=== PATIENT | male | born 1940 | race Two or more races ===

== ENCOUNTER → 2018-09-27 | Outpatient (CLI) | payer MEDICARE, BC ==
--- NOTE | 2018-09-27 12:59 | RADIOLOGY REPORT (SQ) ---
EXAM DESCRIPTION: CT SINUSES FOR ENT COMPLETED DATE/TIME: 09/27/2018 12:45 pm REASON FOR STUDY: J32.4 CHRONIC PANSINUSITIS ( SINUS FUSION PROTOCOL) J32.4 CHRONIC PANSINUSITIS COMPARISON: None. TECHNIQUE: Noncontrast scanning through the paranasal sinuses using bone algorithm. Reconstructed MPR images reviewed. All images stored on PACS. Images acquired for image guided surgery. All CT scanners at this facility use dose modulation, iterative reconstruction, and/or weight based d osing when appropriate to reduce radiation dose to as low as reasonably achievable (ALARA). [facility]: Dose Right [facility]: CareDose [facility]: Dose Right [facility]: Teradose 4D [facility]: Power[employer] RADIATION DOSE: 46 mGy. FINDINGS: NASAL PASSAGES: Clear. No polyps or masses. OSTEOMEATAL UNITS AND NASOFRONTAL DUCTS: Nasofrontal ducts are are narrowed by mucous membrane thicke susan bilaterally, best shown on coronal images 128 through 137. Bilateral maxillary outlets are narro wed by mucous membrane thickening on coronal images 122 through 141. Bilateral Arturo cells are pres ent. MAXILLARY SINUSES: Mucous membrane thickening throughout the right and left anterior de la paz maxillary sinuses. Maxillary outlets are narrowed by mucous membrane thickening ETHMOID SINUSES: Bilateral anterior and mid ethmoid air cells are opacified with fluid. Posterior le ft ethmoid air cells are opacified with fluid SPHENOID SINUSES: Right sphenoid sinus clear, right sphenoid out with patent axial image 83. Mucus o r serous retention cyst floor/left pterygoid recess left sphenoid sinus. Left sphenoid sinus outlet patent on axial image 82. No pneumatized dorsal sella. FRONTAL SINUSES: Well-pneumatized. Mucous membrane thickening in the bilateral fronto ethmoid juncti on. MASTOID AIR CELLS: Clear. ORBITS: Globes post cataract surgery bilaterally. No intraorbital masses NASAL SEPTUM: Midline. No nasal septal spurs. TEMPOROMANDIBULAR JOINTS: Normal. TURBINATES: No pneumatized turbinates. MUCOPERIOSTEAL THICKENING: No. MUCOCELE: No. OTHER: No other significant findings. IMPRESSION: Inflammatory changes in the paranasal sinuses as above. TECHNICAL DOCUMENTATION: JOB ID: [id number] Quality ID # [id number]: Final reports with documentation of one or more dose reduction techniques (e.g., Au tomated exposure control, adjustment of the mA and/or kV according to patient size, use of iterative reconstruction technique) 2010 [employer]- All Rights Reserved Reading location - IP/workstation name: [email or web address]
== END ==
LOC: RAD 12:04
PROVIDERS: ATTEND Otolaryngology
DX: J32.4 Chronic pansinusitis (principal)
CPT/HCPCS: 70486

== ENCOUNTER 2018-12-20 11:44 | Emergency (ER) | payer MEDICARE, BC ==
--- NOTE | 2018-12-20 12:01 | ER Document Report ---
ED Medical Screen (RME) - General TRAVEL OUTSIDE OF THE [place]. IN LAST 30 DAYS: No <JUDITH HURTADO - Last Filed: 12/20/18 12:01> <BRET GARCÍA - Last Filed: 12/20/18 12:43> - General Chief Complaint: High Blood Pressure Stated Complaint: BLOOD PRESSURE ISSUES Time Seen by Provider: 12/20/18 11:56 Primary Care Provider: RADHA FRANKLIN MD [Primary Care Provider] - Follow up as needed Notes: 78 years old male with a history of hypertension hypercholesterolemia and diabetes presents today with elevated blood pressure around 196 systole this morning as well as feeling dizzy and lightheaded. Denies any chest pain palpitation or diaphoresis. Denies any focal weakness numbness tingling sensation. Examination obesity (JUDITH HURTADO) - Related Data Allergies/Adverse Reactions: No Known Allergies Allergy (Verified 12/20/18 11:51) Past Medical History - Past Medical History Cardiac Medical History: Reports: Hx Hypercholesterolemia Endocrine Medical History: Reports: Hx Diabetes Mellitus Type 2 Musculoskeltal Medical History: Reports Hx Arthritis Past Surgical History: Reports: Hx Cholecystectomy - Immunizations Hx Diphtheria, Pertussis, Tetanus Vaccination: Yes <JUDITH HURTADO - Last Filed: 12/20/18 12:01> - Vital signs Vitals: Temp Pulse Resp BP Pulse Ox 98.1 F 94 16 169/69 H 97 12/20/18 11:56 12/20/18 11:56 12/20/18 11:56 12/20/18 11:56 12/20/18 11:56 Course - Laboratory Result Diagrams: 12/20/18 12:08 12/20/18 12:08 <BRET GARCÍA - Last Filed: 12/20/18 12:43> - Vital Signs Vital signs: Temp Pulse Resp BP Pulse Ox 98.1 F 94 16 169/69 H 97 12/20/18 11:56 12/20/18 11:56 12/20/18 11:56 12/20/18 11:56 12/20/18 11:56 - Laboratory Laboratory results interpreted by me: 12/20/18 12:08 RDW 14.5 H Doctor's Discharge <JUDITH HURTADO - Last Filed: 12/20/18 12:01> <BRET GARCÍA F - Last Filed: 12/20/18 12:43> - Discharge Clinical Impression: Hypertension Qualifiers: Hypertension type: unspecified Qualified Code(s): I10 - Essential (primary) hypertension Condition: Good Disposition: HOME, SELF-CARE Instructions: Beta Blockers ([facility]), High Blood Pressure, Requiring Treatment ([facility]) Referrals: RADHA FRANKLIN MD [Primary Care Provider] - Follow up tomorrow
[2018-12-20 12:24] LABS: ABSOLUTE BASOPHILS # (AUTO) 0.1 10^3/uL (0.0-0.2); ABSOLUTE EOSINOPHILS # (AUTO) 0.1 10^3/uL (0.0-0.6); ABSOLUTE LYMPHOCYTES (AUTO) 1.6 10^3/uL (0.5-4.7); ABSOLUTE MONOCYTES (AUTO) 0.7 10^3/uL (0.1-1.4); ABSOLUTE NEUT (AUTO) 7.5 10^3/uL (1.7-8.2); BASOPHILS % (AUTO) 1.1 % (0-2); EOSINOPHILS % (AUTO) 0.5 % (0-6); HEMATOCRIT 41.3 % (37.9-51.0); LYMPHOCYTES % (AUTO) 16.3 % (13-45); MEAN CORPUSCULAR HEMOGLOBIN 29.1 pg (27.0-33.4); MEAN CORPUSCULAR VOLUME 86 fl (80-97); MONOCYTES % (AUTO) 6.8 % (3-13); PLATELET COUNT 192 10^3/uL (150-450); RED BLOOD COUNT 4.81 10^6/uL (4.35-5.55); RED CELL DISTRIBUTION WIDTH 14.5 % (11.5-14.0); SEGMENTED NEUTROPHILS % (AUTO) 75.3 % (42-78); TOTAL CELLS COUNTED % (AUTO) 100 %
--- NOTE | 2018-12-20 12:39 | RADIOLOGY REPORT (SQ) ---
EXAM DESCRIPTION: CT HEAD WITHOUT COMPLETED DATE/TIME: 12/20/2018 12:28 pm REASON FOR STUDY: Headache and dizziness COMPARISON: CT sinuses 09/27/2018 TECHNIQUE: Axial images acquired through the brain without intravenous contrast. Images reviewed wi th bone, brain and subdural windows. Additional sagittal and coronal reconstructions were generated. Images stored on PACS. All CT scanners at this facility use dose modulation, iterative reconstruction, and/or weight based d osing when appropriate to reduce radiation dose to as low as reasonably achievable (ALARA). [facility]: Dose Right [facility]: CareDose [facility]: Dose Right [facility]: Teradose 4D [facility]: [employer] RADIATION DOSE: CT Rad equipment meets quality standard of care and radiation dose reduction techniq ues were employed. CTDIvol: 53.2 mGy. DLP: 1044 mGy-cm. mGy. LIMITATIONS: None. FINDINGS: VENTRICLES: Normal size and contour. CEREBRUM: No CT evidence of acute large territory ischemic change, acute intracranial hemorrhage, mas s effect, or midline shift. Spotty low attenuation in the bifrontal and biparietal hemispheric white matter from chronic small vessel disease. CEREBELLUM: No masses. No hemorrhage. No alteration of density. No evidence for acute infarction. EXTRAAXIAL SPACES: No fluid collections. No masses. ORBITS AND GLOBE: No intra- or extraconal masses. Post cataract surgery bilaterally CALVARIUM: No fracture. PARANASAL SINUSES: Chronically opacified posterior left ethmoid air cell with dried secretions axial image 14 and 15. Mucous membrane thickening in the left sphenoid sinus. SOFT TISSUES: No mass or hematoma. OTHER: No other significant finding. IMPRESSION: Left sphenoid and posterior ethmoid air cell inflammatory changes No acute intracranial findings. Age-appropriate minimal white matter disease EVIDENCE OF ACUTE STROKE: NO. COMMENT: Quality ID # 436: Final reports with documentation of one or more dose reduction techniques (e.g., Automated exposure control, adjustment of the mA and/or kV according to patient size, use of iterative reconstruction technique) TECHNICAL DOCUMENTATION: JOB ID: [id number] [employer]- All Rights Reserved Reading location - IP/workstation name: [email or web address]
[2018-12-20 12:49] VITALS: BP 157/73
[2018-12-20 12:50] LABS: ALANINE AMINOTRANSFERASE 18 U/L (21-72); ALBUMIN 4.6 g/dL (3.5-5.0); ALKALINE PHOSPHATASE 84 U/L (38-126); ANION GAP 11 (5-19); ASPARTATE AMINO TRANSFERASE 17 U/L (17-59); BILIRUBIN,DIRECT 0.2 mg/dL (0.0-0.4); BILIRUBIN,TOTAL 0.6 mg/dL (0.2-1.3); BLOOD UREA NITROGEN 26 mg/dL (7-20); CARBON DIOXIDE 28 mmol/L (22-30); CHLORIDE 101 mmol/L (98-107); GLUCOSE 205 mg/dL (75-110); SODIUM 139.7 mmol/L (137-145); TOTAL PROTEIN 7.1 g/dL (6.3-8.2)
--- NOTE | 2018-12-20 17:51 | EKG REPORT ---
SEVERITY:- ABNORMAL ECG - SINUS RHYTHM LAD, CONSIDER LEFT ANTERIOR FASCICULAR BLOCK : Confirmed by: Madison Blood MD 20-Dec-2018 17:51:30
== END 2018-12-20 12:55 | disposition home or self-care (01) ==
LOC: ER 11:44
DX: I10 Essential (primary) hypertension (principal); E11.9 Type 2 diabetes mellitus without complications; R42 Dizziness and giddiness
CPT/HCPCS: 36415; 70450; 80053; 85025; 93005; 93010; 99284

== ENCOUNTER → 2018-12-22 | Outpatient (CLI) | payer MEDICARE, BC | LOC: OD 09:34 | PROVIDERS: ATTEND Otolaryngology | DX: J30.9 Allergic rhinitis, unspecified (principal) | CPT/HCPCS: 36415; 82785; 86003 ==

== ENCOUNTER 2018-12-27 08:58 | Emergency (ER) | payer MEDICARE, BC ==
--- NOTE | 2018-12-27 09:50 | ER Document Report ---
ED Medical Screen (RME) - General Chief Complaint: Abdominal Pain Stated Complaint: ABDOMINAL PAIN Time Seen by Provider: 12/27/18 09:46 Primary Care Provider: RADHA FRANKLIN MD [Primary Care Provider] - Follow up as needed Mode of Arrival: Ambulatory Information source: Patient Notes: 78-year-old male presents with complaint of abdominal pain and constipation that started 3 days prior to arrival. Patient has surgical history of cholecystectomy. I have greeted and performed a rapid initial assessment of this patient. A comprehensive ED assessment and evaluation of the patient, analysis of test results and completion of medical decision making process we will be contacted by additional ED providers. PHYSICAL EXAMINATION: Vital signs reviewed GENERAL: Well-appearing, well-nourished and in no acute distress. LUNGS: No respiratory distress Musculoskeletal: Normal range of motion NEUROLOGICAL: Normal speech, normal gait. PSYCH: Normal mood, normal affect. SKIN: Warm, Dry, normal turgor, no rashes or lesions noted. TRAVEL OUTSIDE OF THE [place] IN LAST 30 DAYS: No - HPI Onset: Other Onset/Duration: Gradual Quality of pain: Cramping Severity: Mild Associated Symptoms: denies: Chest pain, Diarrhea, Fever, Nausea Exacerbated by: Denies Relieved by: Denies Similar symptoms previously: Yes Recently seen / treated by doctor: No - Related Data Smoking: Non-smoker Frequency of alcohol use: None Drug Abuse: None Allergies/Adverse Reactions: No Known Allergies Allergy (Verified 12/20/18 11:51) Past Medical History - Social History Frequency of alcohol use: None Drug Abuse: None - Past Medical History Cardiac Medical History: Reports: Hx Hypercholesterolemia, Hx Hypertension Endocrine Medical History: Reports: Hx Diabetes Mellitus Type 2 Renal/ Medical History: Denies: Hx Peritoneal Dialysis Musculoskeltal Medical History: Reports Hx Arthritis Past Surgical History: Reports: Hx Abdominal Surgery - right inginual hernia r epair, Hx Cholecystectomy - Immunizations Hx Diphtheria, Pertussis, Tetanus Vaccination: Yes Physical Exam - Vital signs Vitals: Temp Pulse Resp BP Pulse Ox 98.1 F 78 18 156/67 H 97 12/27/18 09:13 12/27/18 09:13 12/27/18 09:13 12/27/18 09:13 12/27/18 09:13 Course - Vital Signs Vital signs: Temp Pulse Resp BP Pulse Ox 98.1 F 78 18 156/67 H 97 12/27/18 09:13 12/27/18 09:13 12/27/18 09:13 12/27/18 09:13 12/27/18 09:13 Doctor's Discharge - Discharge Referrals: RADHA FRANKLIN MD [Primary Care Provider] - Follow up as needed
[2018-12-27 10:26] LABS: ABSOLUTE BASOPHILS # (AUTO) 0.1 10^3/uL (0.0-0.2); ABSOLUTE LYMPHOCYTES (AUTO) 1.6 10^3/uL (0.5-4.7); ABSOLUTE NEUT (AUTO) 7.9 10^3/uL (1.7-8.2); BASOPHILS % (AUTO) 0.9 % (0-2); EOSINOPHILS % (AUTO) 0.5 % (0-6); HEMATOCRIT 39.7 % (37.9-51.0); HEMOGLOBIN 13.5 g/dL (13.5-17.0); LYMPHOCYTES % (AUTO) 15.2 % (13-45); MEAN CORPUSCULAR HEMOGLOBIN 29.3 pg (27.0-33.4); MEAN CORPUSCULAR HGB CONC 34.1 g/dL (32.0-36.0); MEAN CORPUSCULAR VOLUME 86 fl (80-97); MONOCYTES % (AUTO) 9.3 % (3-13); PLATELET COUNT 214 10^3/uL (150-450); RED BLOOD COUNT 4.62 10^6/uL (4.35-5.55); RED CELL DISTRIBUTION WIDTH 14.4 % (11.5-14.0); SEGMENTED NEUTROPHILS % (AUTO) 74.1 % (42-78); TOTAL CELLS COUNTED % (AUTO) 100 %; WHITE BLOOD COUNT 10.7 10^3/uL (4.0-10.5)
[2018-12-27 10:42] LABS: ALANINE AMINOTRANSFERASE 28 U/L (21-72); ALBUMIN 4.7 g/dL (3.5-5.0); ALKALINE PHOSPHATASE 81 U/L (38-126); ANION GAP 12 (5-19); ASPARTATE AMINO TRANSFERASE 19 U/L (17-59); BILIRUBIN,DIRECT 0.1 mg/dL (0.0-0.4); BILIRUBIN,TOTAL 0.5 mg/dL (0.2-1.3); BLOOD UREA NITROGEN 24 mg/dL (7-20); CALCIUM 10.1 mg/dL (8.4-10.2); CARBON DIOXIDE 26 mmol/L (22-30); CHLORIDE 99 mmol/L (98-107); GLUCOSE 190 mg/dL (75-110); POTASSIUM 5.4 mmol/L (3.6-5.0); SODIUM 137.3 mmol/L (137-145)
[2018-12-27 10:51] LABS: LIPASE 2749.8 U/L (23-300)
--- NOTE | 2018-12-27 11:01 | RADIOLOGY REPORT (SQ) ---
EXAM DESCRIPTION: ACUTE ABDOMEN SERIES COMPLETED DATE/TIME: 12/27/2018 10:47 am REASON FOR STUDY: pain no BM COMPARISON: 12/03/2011. NUMBER OF VIEWS: Three views. TECHNIQUE: Frontal chest, supine abdomen and upright/decubitus abdomen radiographic images acquired. LIMITATIONS: None. FINDINGS: CHEST: Lungs clear of infiltrates. FREE AIR: None. No abnormal gas collections. BOWEL GAS PATTERN: Nonobstructive pattern. No dilated loops or air fluid levels. Prominent stool thr oughout the colon. CALCIFICATIONS: No suspicious calcifications. HARDWARE: Surgical clips. SOFT TISSUES: No gross mass or suggestion of organomegaly. BONES: No acute fracture. No worrisome bone lesions. OTHER: No other significant finding. IMPRESSION: PROMINENT STOOL THROUGHOUT THE COLON CONSISTENT WITH CONSTIPATION. NO RADIOGRAPHIC EVID ENCE FOR ACUTE ABDOMINAL DISEASE. TECHNICAL DOCUMENTATION: JOB ID: [id number] [employer]- All Rights Reserved Reading location - IP/workstation name: [email or web address]
--- NOTE | 2018-12-27 11:31 | ER Document Report ---
ED General - General Chief Complaint: Abdominal Pain Stated Complaint: ABDOMINAL PAIN Time Seen by Provider: 12/27/18 09:46 Primary Care Provider: RADHA FRANKLIN MD [ACTIVE STAFF] - Follow up as needed Mode of Arrival: Ambulatory Notes: 78-year-old male presents with 3-day history of constipation and some abdominal fullness and discomfort. The patient stated he was having 3 days of abdominal distention and discomfort. More so on the left lower quadrant. The patient was doing well here workup was started by triage. He stated he went to the bathroom and had a large bowel movement and now is completely asymptomatic. He denies any current nausea vomiting denies fever chills cough or sore throat denies chest pain or shortness of breath. Stated his symptoms are completely resolved before he had some mild to moderate fullness in his abdomen more so the left lower quadrant. TRAVEL OUTSIDE OF THE [place] IN LAST 30 DAYS: No - Related Data Allergies/Adverse Reactions: No Known Allergies Allergy (Verified 12/20/18 11:51) Past Medical History - General Information source: Patient - Social History Smoking Status: Never Smoker Frequency of alcohol use: None Drug Abuse: None Family History: Other Patient has suicidal ideation: No Patient has homicidal ideation: No - Past Medical History Cardiac Medical History: Reports: Hx Hypercholesterolemia, Hx Hypertension Endocrine Medical History: Reports: Hx Diabetes Mellitus Type 2 Renal/ Medical History: Denies: Hx Peritoneal Dialysis Musculoskeletal Medical History: Reports Hx Arthritis Past Surgical History: Reports: Hx Abdominal Surgery - right inginual hernia repair, Hx Cholecystectomy - Immunizations Hx Diphtheria, Pertussis, Tetanus Vaccination: Yes Review of Systems - Review of Systems Gastrointestinal: Abdomen distended, Abdominal pain, Nausea, Constipation -: Yes All other systems reviewed and negative Physical Exam - Vital signs Vitals: Temp Pulse Resp BP Pulse Ox 98.1 F 78 18 156/67 H 97 12/27/18 09:13 12/27/18 09:13 12/27/18 09:13 12/27/18 09:13 12/27/18 09:13 - Notes Notes: GENERAL_APPEARANCE: well_nourished, alert, cooperative, no_acute_distress, no_obvious_discomfort. VITALS: reviewed, see vital signs table. HEAD: no_swelling\tenderness on the head. EYES: PERRL, EOMI, conjunctiva_clear. NOSE: no_nasal_discharge. MOUTH: (-)decreased moisture. THROAT: no_tonsilar_inflammation, no_airway_obstruction. no_lymphadenopathy NECK: supple, no_neck_tenderness, (-)thyromegaly. BACK: no_back_tenderness. ABDOMEN: soft, no_abd_tenderness, (-)guarding, (-)rebound, no_organomegaly, no_abd_masses. EXTREMITIES: good pulses in all_extremities, no_swelling\tenderness in the extremities, no_edema. SKIN: warm, dry, good_color, no_rash. MENTAL_STATUS: speech_clear, oriented_X_3, normal_affect, respon ds_appropriately to questions. Course - Re-evaluation Re-evalutation: 12/27/18 11:44 Acute Abdomen Series 12/27/18 09:49 IMPRESSION: PROMINENT STOOL THROUGHOUT THE COLON CONSISTENT WITH CONSTIPATION. NO RADIOGRAPHIC EVIDENCE FOR ACUTE ABDOMINAL DISEASE. The patient had a large bowel movement and feels much better and is wanting to go home. I spoke with him about the findings. His lipase is elevated but there is no liver function elevations. He denies any alcohol use. I spoke with him about the possibility of pancreatitis but the patient has no pain now on exam and his initial complaint is discomfort was left lower quadrant. This does not seem to clinically correlate. The patient stated he has an appointment with gastroenterology coming up but he does not know who that would be. Patient is wanting to go home I explained to him that he will need to follow this up outpatient. I did explain him worse case scenario he could have some type of pancreatic lesion. However there are many other causes of pancreatitis. Since he is asymptomatic at this time and he is insistent on going home I will not work this up further. I made clear the him that is absolutely paramount he gets this followed up as soon as possible. He says he has an appointment with gastroenterology coming up and will. 12/27/18 11:47 Was just mildly elevated encouraged him to drink plenty of fluids. This may likely be a result of hemolysis. - Vital Signs Vital signs: Temp Pulse Resp BP Pulse Ox 98.1 F 78 18 156/67 H 97 12/27/18 09:13 12/27/18 09:13 12/27/18 09:13 12/27/18 09:13 12/27/18 09:13 - Laboratory Result Diagrams: 12/27/18 09:50 12/27/18 09:50 Laboratory results interpreted by me: 12/27/18 12/27/18 09:50 09:50 WBC 10.7 H RDW 14.4 H Potassium 5.4 H BUN 24 H Glucose 190 H Lipase 2749.8 H - Diagnostic Test Radiology reviewed: Reports reviewed Discharge - Discharge Clinical Impression: Pancreatitis Qualifiers: Chronicity: acute Pancreatitis type: unspecified pancreatitis type Constipation Qualifiers: Constipation type: unspecified constipation type Qualified Code(s): K59.00 - Constipation, unspecified Condition: Good Disposition: HOME, SELF-CARE Instructions: Pancreatitis ([facility]) Additional Instructions: Your lipase which is a pancreatic enzyme is elevated. None of your liver enzymes are elevated. We have spoke about pancreatitis it is very important that he have that number rechecked. When you see gastroenterology coming up you need to notify them of this. They may need to do further testing possibly MRI. If you start develop pain or vomiting return to the ER soon as possible. Referrals: RADHA FRANKLIN MD [ACTIVE STAFF] - Follow up as needed
[2018-12-27 11:59] VITALS: BP 158/66
== END 2018-12-27 11:51 | disposition home or self-care (01) ==
LOC: ER 08:58
DX: K85.90 Acute pancreatitis without necrosis or infection, unspecified (principal); K59.00 Constipation, unspecified; R10.9 Unspecified abdominal pain; E78.00 Pure hypercholesterolemia, unspecified; I10 Essential (primary) hypertension; E11.9 Type 2 diabetes mellitus without complications; Z90.49 Acquired absence of other specified parts of digestive tract
CPT/HCPCS: 36415; 74022; 80053; 83690; 85025; 99284

== ENCOUNTER → 2019-01-17 | Outpatient (CLI) | payer MEDICARE, BC ==
--- NOTE | 2019-01-17 11:59 | RADIOLOGY REPORT (SQ) ---
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 Images stored on PACS. LIMITATIONS: None. FINDINGS: RIGHT CAROTID CCA Velocities: Within normal limits. Right common carotid peak systolic velocity 1.1 m/sec ICA Velocities Peak systolic 1.1 m/s. End diastolic 0.19 m/s. Proximal ICA/CCA peak systolic ratio 0.9. Calcific eccentric plaque is present at the right carotid bifurcation causing about 50% diameter narr owing on grayscale and color flow images. Velocities distal to the shadowing plaque suggest less sharita n 50% diameter narrowing of the proximal right ICA. LEFT CAROTID CCA Velocities: Within normal limits. Left common carotid artery peak systolic velocity 1.4 m/sec ICA Velocities Peak systolic 0.53 m/s. End diastolic 0.12 m/s. Proximal ICA/CCA peak systolic ratio 1.0. Minimal calcific plaque is present at the left carotid bifurcation without flow significant stenosis of the left proximal ICA VERTEBRAL ARTERIES: Antegrade flow. Normal waveforms. SUBCLAVIAN ARTERIES: Not evaluated. OTHER: No other significant finding. IMPRESSION: NO HEMODYNAMICALLY SIGNIFICANT STENOSIS OF THE PROXIMAL RIGHT OR LEFT INTERNAL CAROTID A RTERY AT THE CAROTID BIFURCATIONS. COMMENT: Quality ID #[id number]: Velocity criteria are extrapolated from the diameter data as defined by t he Society of Radiologists in Ultrasound Consensus Conference. Radiology 2003: 229; 340-346. TECHNICAL DOCUMENTATION: JOB ID: [id number] [employer]- All Rights Reserved Reading location - IP/workstation name: [email or web address]
== END ==
LOC: SP 10:43
PROVIDERS: ATTEND Surgery
DX: Z86.73 Personal history of transient ischemic attack (TIA), and cerebral infarction without residual deficits (principal)
CPT/HCPCS: 93880

== ENCOUNTER 2019-11-20 14:43 | Emergency (ER) | payer MEDICARE, BC ==
--- NOTE | 2019-11-20 15:33 | ER Document Report ---
ED Medical Screen (RME) - General Chief Complaint: nosebleed Stated Complaint: NOSEBLEED Time Seen by Provider: 11/20/19 15:19 Primary Care Provider: NAHED COLLAZO MD [Primary Care Provider] - Follow up as needed Mode of Arrival: Ambulatory Information source: Patient Notes: 79-year-old male patient presenting to the emergency department with complaints of recurrent nosebleeds. He states that he believes the nosebleeds are originating from his upper sinuses, states that every time he has a nosebleed he feels a really terrible sensation up in the middle of his forehead between his eyes. He states he is seen by ENT, states they have done every test other than a CT of his sinuses and have tried every medication without relief. No active bleeding noted at this time. I have greeted and performed a rapid initial assessment of this patient. A comprehensive ED assessment and evaluation of the patient, analysis of test results and completion of the medical decision making process will be conducted by additional ED providers. I have specifically instructed the patient or family members with the patient to immediately return to any nursing staff shoul d anything change in the patient's condition or with their chief complaint. TRAVEL OUTSIDE OF THE [place] IN LAST 30 DAYS: No - Related Data Allergies/Adverse Reactions: No Known Allergies Allergy (Verified 12/20/18 11:51) Past Medical History - Social History Frequency of alcohol use: None - Past Medical History Cardiac Medical History: Reports: Hx Hypercholesterolemia, Hx Hypertension Endocrine Medical History: Reports: Hx Diabetes Mellitus Type 2 Renal/ Medical History: Denies: Hx Peritoneal Dialysis Musculoskeltal Medical History: Reports Hx Arthritis Past Surgical History: Reports: Hx Abdominal Surgery - right inginual hernia repair, Hx Cholecystectomy - Immunizations Hx Diphtheria, Pertussis, Tetanus Vaccination: Yes Physical Exam - Vital signs Vitals: Pulse Resp BP Pulse Ox 102 H 18 167/62 H 93 11/20/19 14:59 11/20/19 14:59 11/20/19 14:59 11/20/19 14:59 Course - Vital Signs Vital signs: Temp Pulse Resp BP Pulse Ox 97.9 F 100 18 167/62 H 93 11/20/19 15:26 11/20/19 15:26 11/20/19 14:59 11/20/19 14:59 11/20/19 14:59 Doctor's Discharge - Discharge Referrals: NAHED COLLAZO MD [Primary Care Provider] - Follow up as needed
--- NOTE | 2019-11-20 16:58 | RADIOLOGY REPORT (SQ) ---
EXAM DESCRIPTION: CT FACIAL AREA WITHOUT COMPLETED DATE/TIME: 11/20/2019 4:28 pm REASON FOR STUDY: sinus pain, bleeding COMPARISON: None. TECHNIQUE: Noncontrasted images through the facial bones and orbits windowed for bone and soft tissu e. Additional coronal and sagittal reconstructed images reviewed. All images stored on PACS. All CT scanners at this facility use dose modulation, iterative reconstruction, and/or weight based d osing when appropriate to reduce radiation dose to as low as reasonably achievable (ALARA). [facility]: Dose Right [facility]: CareDose [facility]: Dose Right [facility]: Teradose 4D [facility]: [employer] RADIATION DOSE: CT Rad equipment meets quality standard of care and radiation dose reduction techniq ues were employed. CTDIvol: 30.4 mGy. DLP: 593 mGy-cm. mGy. LIMITATIONS: None. FINDINGS: FACIAL BONES: No fracture or bone lesion. ORBITS: Intact. No fracture. Symmetric intact globes and retroorbital soft tissues. PARANASAL SINUSES: Mucous membrane thickening and fluid throughout all the paranasal sinuses. SOFT TISSUES: No mass or edema. INFERIOR BRAIN: Limited view. No acute findings. OTHER: No other significant finding. IMPRESSION: DIFFUSE PANSINUSITIS. NO OTHER SIGNIFICANT FINDINGS. TECHNICAL DOCUMENTATION: JOB ID: [id number] Quality ID # 436: Final reports with documentation of one or more dose reduction techniques (e.g., Au tomated exposure control, adjustment of the mA and/or kV according to patient size, use of iterative reconstruction technique) 2010 [employer]- All Rights Reserved Reading location - IP/workstation name: [email or web address]
[2019-11-20] MEDS ORDERED: OXYMETAZOLINE HCL 0.05% NASAL SPRAY 15 ML BOTTLE NASL ONE (18:44)
--- NOTE | 2019-11-20 19:05 | ER Document Report ---
ED General - General Chief Complaint: nosebleed Stated Complaint: NOSEBLEED Time Seen by Provider: 11/20/19 15:19 Primary Care Provider: NAHED COLLAZO MD [ACTIVE STAFF] - Follow up as needed Mode of Arrival: Ambulatory TRAVEL OUTSIDE OF THE [place] IN LAST 30 DAYS: No - Related Data Allergies/Adverse Reactions: No Known Allergies Allergy (Verified 12/20/18 11:51) Past Medical History - General Information source: Patient - Social History Smoking Status: Former Smoker Frequency of alcohol use: None Family History: Other Patient has suicidal ideation: No Patient has homicidal ideation: No - Past Medical History Cardiac Medical History: Reports: Hx Hypercholesterolemia, Hx Hypertension Endocrine Medical History: Reports: Hx Diabetes Mellitus Type 2 Renal/ Medical History: Denies: Hx Peritoneal Dialysis Musculoskeletal Medical History: Reports Hx Arthritis Past Surgical History: Reports: Hx Abdominal Surgery - right inginual hernia repair, Hx Cholecystectomy - Immunizations Hx Diphtheria, Pertussis, Tetanus Vaccination: Yes Physical Exam - Vital signs Vitals: Pulse Resp BP Pulse Ox 102 H 18 167/62 H 93 11/20/19 14:59 11/20/19 14:59 11/20/19 14:59 11/20/19 14:59 - Notes Notes: Patient presents emerged department complaining of epistaxis this morning after blowing his nose. Had minimal amount of bleeding from his left nares but not his right. He denies any previous history of nosebleeds. Denies any recent URI symptoms nasal congestion sore throat chest pain shortness of breath or dizziness with this and no headaches. Patient gives a history of frontal pain above his nose going on for several years. Is been seen by ENT in the past working diagnosis. Past medical history sniffing for diabetes and hypertension. Says sugar this morning was about 130 Social history does not smoke or drink at all. Medications denies being on a blood thinner Review of systems pertinent positives and negatives in HPI otherwise all the systems were reviewed and acutely negative PHYSICIAN EXAM -vital signs are noted triage note and note from triage reviewed GENERAL: Well-appearing, well-nourished and in ___no acute distress___ HEAD: Atraumatic, normocephalic. EYES: Pupils equal round and reactive to light, extraocular movements intact, sclera anicteric, conjunctiva are normal. ENT: nares patent, oropharynx clear without exudates. Moist mucous membranes. Afrin nose spray was applied to both nares. On repeat exam is got dry mucosa and some nasal congestion no active bleeding or septal hematoma patient is nontender TMs are clear is nontender the face is NECK: supple without lymphadenopathy LUNGS: Breath sounds clear to auscultation bilaterally and equal. No wheezes rales or rhonchi. HEART: Regular rate and rhythm without murmurs ABDOMEN: Soft, nontender, normoactive bowel sounds. EXTREMITIES: No deformity, no edema. NEUROLOGICAL: No focal neurological deficits. Moves all extremities spontaneously and on command. PSYCH: Normal mood, normal affect. SKIN: Warm, Dry, normal turgor, no rashes or lesions noted. BACK-nontender in the midline Course - Re-evaluation Re-evalutation: 11/20/19 21:38 Medical decision making patient presents with a brief episode of epistaxis after blowing his nose. Some nasal congestion of the sinusitis. He says is been on antibiotics for the past 2 days has family doctor started him on. This time there is no active bleeding it was only very brief episode. Feel that laboratory studies are needed at this time. Plan at this point will discharge patient home with recommended use Neosporin or Vaseline to both sides of his nose continue antibiotics follow-up with family doctor in 3 to 5 days if not improved otherwise follow-up with ENT in 2 weeks At this time there is no indication for admission. I have discussed the findings with patient/family with return precautions and follow-up recommendations. Verbal discharge instructions given at the bedside and opport unity for questions given. Medication warnings were given if indicated. Patient is in agreement with this plan and has verbalized understanding of return precautions and the need for primary care follow-up as directed.. - Vital Signs Vital signs: Temp Pulse Resp BP Pulse Ox 98.0 F 88 20 136/60 H 93 11/20/19 19:50 11/20/19 19:50 11/20/19 19:50 11/20/19 19:50 11/20/19 19:50 - Diagnostic Test Radiology reviewed: Reports reviewed Discharge - Discharge Clinical Impression: Epistaxis Sinusitis Qualifiers: Sinusitis location: other Chronicity: acute Disposition: HOME, SELF-CARE Additional Instructions: Nosebleed Instructions There is a significant chance of re-bleeding following a nosebleed. Proper care makes this less likely. Do not touch the nose for 24 hours. Do not blow the nose forcefully for one week. After 24 hours, gently apply Vaseline ointment to both nostrils with the tip of a finger, three times a day, for one week. It's normal to have a bloody mucous discharge for a few days. If active bleeding recurs, blow all the blood from the nose, then sit quietly and pinch the nose as firmly as possible for 10 minutes. If this does not stop the bleeding, return for further care. If packing was left in the nose and it starts to come out of the nostril, either tuck it back in or cut it off. Don't pull it out. Return for recheck and removal of the packing when instructed. Persons with frequent nosebleeds should avoid aspirin (unless prescribed for another reason). Humidity in the bedroom, and petroleum jelly applied to the nostrils at night may help. Sinusitis You have sinusitis, an infection of the sinus cavities of the face. The sinuses are air-filled chambers which open into the inside of the nose. Bacteria and pus fill a sinus, causing pain, drainage, and fever. Sinusitis is treated with antibiotics. Often, expectorants (to thin the sinus mucous) or decongestants (to reduce swelling) are prescribed as well. Healing requires seven to 10 days. Avoid chemical fumes, pollens, dusts, and smoke (especially cigarette smoke). Keep the air humidified in your bedroom and work area and take plenty of liquids by mouth. This condition can be serious if the infection spreads. If your symptoms worsen, or if you develop severe headache, high fever, stiff neck, or a rash, you must call the doctor or return for re-evaluation. Continue current antibiotics Apply an antibiotic ointment (like Neosporin or bacitracin) Or even Vaseline in the both____ side(s) of your nose 2 times a day for the next 5 days. If your nose starts to bleed again pinch your nose and hold it for closed for full 2 minutes and this will usually stop the bleeding. Avoid hot liquids. Sneeze with your mouth open Return to the ED in 3 to 5 days if not better Follow-up with your ENT doctor in 2 weeks Referrals: NAHED COLLAZO MD [ACTIVE STAFF] - Follow up as needed
[2019-11-20 20:28] VITALS: BP 136/60
== END 2019-11-20 19:50 | disposition home or self-care (01) ==
LOC: ER 14:43
DX: R04.0 Epistaxis (principal); Z87.891 Personal history of nicotine dependence; I10 Essential (primary) hypertension; E11.9 Type 2 diabetes mellitus without complications; R09.81 Nasal congestion
CPT/HCPCS: 99283; 70486; A9270; J3490

== ENCOUNTER 2020-01-11 13:40 | Emergency (ER) | payer MEDICARE, BC ==
--- NOTE | 2020-01-11 14:05 | ER Document Report ---
ED Medical Screen (RME) - General Chief Complaint: Urinary Frequency Stated Complaint: FREQUENT URINATION Time Seen by Provider: 01/11/20 14:01 Primary Care Provider: DALIA MOSELEY PA-C [Primary Care Provider] - Follow up as needed Mode of Arrival: Ambulatory Information source: Patient Notes: 79-year-old male presented to ED for urinary frequency. He states he is afraid to get dehydrated so he continues to drink water frequently and then he urinates frequently he is a type II diabetic. He states his sugar last night was 98 it is been running good. He states he is on glyburide for his diabetes. Is alert oriented respirations regular nonlabored speaking in full sentences. We will get blood and urine in the pit area and have him seen by another provider. I have greeted and performed a rapid initial assessment of this patient. A comprehensive ED assessment and evaluation of the patient, analysis of test results and completion of medical decision making process will be conducted by an additional ED providers. TRAVEL OUTSIDE OF THE [place] IN LAST 30 DAYS: No - Related Data Allergies/Adverse Reactions: No Known Allergies Allergy (Verified 01/11/20 14:00) Past Medical History - Past Medical History Cardiac Medical History: Reports: Hx Hypercholesterolemia, Hx Hypertension Endocrine Medical History: Reports: Hx Diabetes Mellitus Type 2 Renal/ Medical History: Denies: Hx Peritoneal Dialysis Musculoskeltal Medical History: Reports Hx Arthritis Past Surgical History: Reports: Hx Abdominal Surgery - right inginual hernia repair, Hx Cholecystectomy - Immunizations Hx Diphtheria, Pertussis, Tetanus Vaccination: Yes Physical Exam - Vital signs Vitals: Temp Pulse Resp BP Pulse Ox 98.1 F 105 H 18 185/68 H 96 01/11/20 13:58 01/11/20 13:58 01/11/20 13:58 01/11/20 13:58 01/11/20 13:58 Course - Vital Signs Vital signs: Temp Pulse Resp BP Pulse Ox 98.1 F 105 H 18 185/68 H 96 01/11/20 13:58 01/11/20 13:58 01/11/20 13:58 01/11/20 13:58 01/11/20 13:58 Doctor's Discharge - Discharge Referrals: DALIA MOSELEY PA-C [Primary Care Provider] - Follow up as needed
[2020-01-11 14:25] LABS: ABSOLUTE BASOPHILS # (AUTO) 0.1 10^3/uL (0.0-0.2); ABSOLUTE EOSINOPHILS # (AUTO) 0.1 10^3/uL (0.0-0.6); ABSOLUTE LYMPHOCYTES (AUTO) 1.8 10^3/uL (0.5-4.7); ABSOLUTE MONOCYTES (AUTO) 0.7 10^3/uL (0.1-1.4); ABSOLUTE NEUT (AUTO) 5.5 10^3/uL (1.7-8.2); BASOPHILS % (AUTO) 1.1 % (0-2); EOSINOPHILS % (AUTO) 0.9 % (0-6); HEMATOCRIT 37.3 % (37.9-51.0); HEMOGLOBIN 12.8 g/dL (13.5-17.0); MEAN CORPUSCULAR HEMOGLOBIN 29.4 pg (27.0-33.4); MEAN CORPUSCULAR HGB CONC 34.2 g/dL (32.0-36.0); MEAN CORPUSCULAR VOLUME 86 fl (80-97); MONOCYTES % (AUTO) 8.3 % (3-13); PLATELET COUNT 199 10^3/uL (150-450); RED BLOOD COUNT 4.34 10^6/uL (4.35-5.55); RED CELL DISTRIBUTION WIDTH 15.1 % (11.5-14.0); SEGMENTED NEUTROPHILS % (AUTO) 67.7 % (42-78); TOTAL CELLS COUNTED % (AUTO) 100 %; WHITE BLOOD COUNT 8.2 10^3/uL (4.0-10.5)
[2020-01-11 14:28] LABS: APPEARANCE,URINE CLEAR; BILIRUBIN,URINE NEGATIVE (NEGATIVE); COLOR,URINE COLORLESS; GLUCOSE, URINE >=500 mg/dL (NEGATIVE); KETONES,URINE NEGATIVE (NEGATIVE); PROTEIN,URINE NEGATIVE (NEGATIVE); URINE SPECIFIC GRAVITY 1.005; UROBILINOGEN,URINE NEGATIVE mg/dL (<2.0)
[2020-01-11 14:44] LABS: ALBUMIN 4.4 g/dL (3.5-5.0); ALKALINE PHOSPHATASE 99 U/L (38-126); ANION GAP 10 (5-19); ASPARTATE AMINO TRANSFERASE 21 U/L (17-59); BILIRUBIN,TOTAL 0.5 mg/dL (0.2-1.3); BLOOD UREA NITROGEN 15 mg/dL (7-20); CALCIUM 9.6 mg/dL (8.4-10.2); CARBON DIOXIDE 28 mmol/L (22-30); CHLORIDE 100 mmol/L (98-107); GLUCOSE 314 mg/dL (75-110); POTASSIUM 4.5 mmol/L (3.6-5.0); TOTAL PROTEIN 7.2 g/dL (6.3-8.2)
--- NOTE | 2020-01-11 15:59 | ER Document Report ---
ED General - General Chief Complaint: Urinary Frequency Stated Complaint: FREQUENT URINATION Time Seen by Provider: 01/11/20 14:01 Primary Care Provider: DALIA MOSELEY PA-C [Primary Care Provider] - Follow up as needed Mode of Arrival: Ambulatory TRAVEL OUTSIDE OF THE [place] IN LAST 30 DAYS: No - HPI Notes: 79-year-old male presents emergency room for evaluation for increased urination and thirst in the last couple of days. Patient is a type II diabetic, states his last A1c was in the 7's. Takes metformin and glipizide for his diabetes. Reports he has been eating more all of which he thinks is salty so that is why he is drinking more. Patient states he checked his blood sugar this morning it was 98. Denies fevers, chills, chest pain,palpitations, shortness of breath, dyspnea, nausea, vomiting, diarrhea, abdominal pain, hematuria,blurred vision, double vision, loss of vision, speech changes, LH, dizziness, syncope, headaches, wheezing, ST, URI, neck pain, weakness, bowel or bladder dysfunction, saddle anesthesia, numbness or tingling in bilateral upper or lower extremities equally, muscle paralysis, weakness in bilateral upper or lower extremities equally or rash. - Related Data Allergies/Adverse Reactions: No Known Allergies Allergy (Verified 01/11/20 14:00) Home Medications: glyburide Past Medical History - General Information source: Patient - Social History Smoking Status: Never Smoker Chew tobacco use (# tins/day): No Frequency of alcohol use: None Drug Abuse: None Family History: Other Patient has suicidal ideation: No Patient has homicidal ideation: No - Past Medical History Cardiac Medical History: Reports: Hx Hypercholesterolemia, Hx Hypertension Endocrine Medical History: Reports: Hx Diabetes Mellitus Type 2 Renal/ Medical History: Denies: Hx Peritoneal Dialysis Musculoskeletal Medical History: Reports Hx Arthritis Past Surgical History: Reports: Hx Abdominal Surgery - right inginual hernia repair, Hx Cholecystectomy - Immunizations Hx Diphtheria, Pertussis, Tetanus Vaccination: Yes Review of Systems - Review of Systems Constitutional: No symptoms reported EENT: No symptoms reported Cardiovascular: No symptoms reported Respiratory: No symptoms reported Gastrointestinal: No symptoms reported Genitourinary: See HPI Male Genitourinary: No symptoms reported Musculoskeletal: No symptoms reported Skin: No symptoms reported Hematologic/Lymphatic: No symptoms reported Neurological/Psychological: No symptoms reported Physical Exam - Vital signs Vitals: Temp Pulse Resp BP Pulse Ox 98.1 F 105 H 18 185/68 H 96 01/11/20 13:58 01/11/20 13:58 01/11/20 13:58 01/11/20 13:58 01/11/20 13:58 - Notes Notes: PHYSICAL EXAMINATION:reviewed vital signs by RN GENERAL: Well-appearing, well-nourished and in no acute distress. HEAD: Atraumatic, normocephalic. EYES: Pupils equal round and reactive to light, extraocular movements intact, sclera anicteric, conjunctiva are normal. ENT: Nares patent, oropharynx clear without exudates. Moist mucous membranes. NECK: Normal range of motion, supple without lymphadenopathy LUNGS: Breath sounds clear to auscultation bilaterally and equal. No wheezes rales or rhonchi. HEART: Regular rate and rhythm without murmurs ABDOMEN: Soft, nontender, nondistended abdomen. No guarding, no rebound. No masses appreciated. Musculoskeletal: Normal range of motion, no pitting or edema. No cyanosis. NEUROLOGICAL: Cranial nerves grossly intact. Normal speech, normal gait. Normal sensory, motor exams PSYCH: Normal mood, normal affect. SKIN: Warm, Dry, normal turgor, no rashes or lesions noted. Course - Re-evaluation Re-evalutation: 01/11/20 16:23 Afebrile vitals stable with slightly hypertensive blood pressure and in no distress. Lab work was ordered in triage, serum blood sugar was 314 at 2 PM, will recheck an Accu-Chek and initiate IV fluids and insulin to get down his blood sugar. CBC negative for leukocytosis or anemia, CMP negative for hepatic or renal dysfunction. Potassium is 4.3. After IV fluids, patient's blood sugar went down to the 140s. Patient states he feels much better. Discussed how to manage his diabetes since he is newly diagnosed within the last year with it. States his hemoglobin A1c was 7.5 when he last went to his doctor's office. Discussed low-carb diet. Patient states he is baseline hypertensive, did not take his blood pressure medications today. After performing a Medical Screening Examination, I estimate there is LOW risk for RUPTURED ESOPHAGUS, PNEUMOTHORAX, PULMONARY EMBOLISM, ACUTE CORONARY SYNDROME, OR THORACIC AORTIC DISSECTION, thus I consider the discharge disposition reasonable. I have reevaluated this patient multiple times and no significant life threatening changes are noted. The patient and I have discussed the diagnosis and risks, and we agree with discharging home with close follow-up. We also discussed returning to the Emergency Department immediately if new or worsening symptoms occur. We have discussed the symptoms which are most concerning (e.g., bloody sputum, worsening pain or shortness of breath) that necessitate immediate return. 01/23/20 08:15 - Vital Signs Vital signs: Temp Pulse Resp BP Pulse Ox 98.2 F 78 16 169/68 H 98 01/11/20 19:02 01/11/20 19:02 01/11/20 19:02 01/11/20 19:02 01/11/20 19:02 - Laboratory Result Diagrams: 01/11/20 14:10 01/11/20 14:10 Laboratory results interpreted by me: 01/11/20 01/11/20 01/11/20 14:10 14:10 14:10 RBC 4.34 L Hgb 12.8 L Hct 37.3 L RDW 15.1 H Glucose 314 H POC Glucose Urine Glucose (UA) >=500 H 01/11/20 01/11/20 01/11/20 16:31 17:48 18:48 RBC Hgb Hct RDW Glucose POC Glucose 270 H 227 H 167 H Urine Glucose (UA) Discharge - Discharge Clinical Impression: Hyperglycemia, Type 2 diabetes mellitus Condition: Stable Disposition: HOME, SELF-CARE Instructions: Hyperglycemia ([facility]) Additional Instructions: Make sure you follow a low-carb diet, monitor your blood sugars throughout the day, monitor your sugar intake. If you notice that you are urinating a lot, drinking a lot and eating a lot, you should check your blood sugar to see if your sugar is elevated, which is what happened today. You are given IV fluids and insulin to lower your blood sugar. Your chest x-ray was normal, the rest of your labs were normal besides your blood sugar, your urinalysis was negative for any UTI. Please follow-up with your primary care provider within the next 24-48 hours as needed. Return immediately for any new or worsening symptoms. Follow up with primary care provider, call tomorrow to make followup appointme nt. Referrals: DALIA MOSELEY PA-C [Primary Care Provider] - Follow up as needed
[2020-01-11] MEDS ORDERED: NORMAL SALINE 1000 ML 1,000 ML IV ONE (16:19)
[2020-01-11] MEDS ORDERED: INSULIN REG, HUMAN 100 UNIT/ML 3 ML VIAL (PYX) IV ONE ×2 (16:19→17:51)
--- NOTE | 2020-01-11 17:04 | RADIOLOGY REPORT (SQ) ---
EXAM DESCRIPTION: CHEST SINGLE VIEW COMPLETED DATE/TIME: 01/11/2020 3:39 pm REASON FOR STUDY: DKA, r/o pna COMPARISON: None. EXAM PARAMETERS: NUMBER OF VIEWS: One view. TECHNIQUE: Single frontal radiographic view of the chest acquired. RADIATION DOSE: NA LIMITATIONS: None. FINDINGS: LUNGS AND PLEURA: No opacities, masses or pneumothorax. No pleural effusion. MEDIASTINUM AND HILAR STRUCTURES: No masses. Contour normal. HEART AND VASCULAR STRUCTURES: Heart normal in size. Normal vasculature. BONES: No acute findings. HARDWARE: None in the chest. OTHER: No other significant finding. IMPRESSION: NO ACUTE RADIOGRAPHIC FINDING IN THE CHEST. TECHNICAL DOCUMENTATION: JOB ID: [id number] 2010 [employer]- All Rights Reserved Reading location - IP/workstation name: [email or web address]
[2020-01-11 19:04] VITALS: BP 169/68
--- NOTE | 2020-01-12 07:39 | EKG REPORT ---
SEVERITY:- ABNORMAL ECG - SINUS RHYTHM INCOMPLETE RBBB AND LAFB : Confirmed by: Jersey Shepherd MD 12-Jan-2020 07:38:26
== END 2020-01-11 19:08 | disposition home or self-care (01) ==
LOC: ER 13:40
DX: E11.65 Type 2 diabetes mellitus with hyperglycemia (principal); Z79.84 Long term (current) use of oral hypoglycemic drugs; I10 Essential (primary) hypertension
CPT/HCPCS: 93005; 99284; 96360; 36415; 82962; 85025; 80053; 81001; 83880; 71045; 93010; A9270; J7030; J1815

== ENCOUNTER 2020-04-22 04:58 | Emergency (ER) | payer MEDICARE, BC ==
--- NOTE | 2020-04-22 06:12 | ER Document Report ---
ED General - General Chief Complaint: Sinus Congestion Stated Complaint: NECK/BREATHING PROBLEM Primary Care Provider: DALIA MOSELEY PA-C [Primary Care Provider] - Follow up as needed Notes: Patient is a 80-year-old male with a past medical history of diabetes who presents to the emergency department with a chief complaint of sinus pressure and postnasal drainage that began overnight. He states when he went to bed last night he felt just fine. He states he woke early this morning with drainage in the back of the throat and sinus pressure and congestion particularly in the frontal sinuses. He states he gets this every year this time a year. He states this feels exactly like his prior episodes of sinusitis. He denies any fever, chills or night sweats. Denies any sore throat or cough. Denies any chest pain or shortness of breath. No recent travel or known sick contacts. No abdominal pain, nausea, vomiting or diarrhea. TRAVEL OUTSIDE OF THE [place] IN LAST 30 DAYS: No - Related Data Allergies/Adverse Reactions: No Known Allergies Allergy (Verified 01/11/20 14:00) Past Medical History - Social History Smoking Status: Never Smoker Chew tobacco use (# tins/day): No Frequency of alcohol use: None Drug Abuse: Bath salts Family History: Other Patient has homicidal ideation: No - Past Medical History Cardiac Medical History: Reports: Hx Hypercholesterolemia, Hx Hypertension Endocrine Medical History: Reports: Hx Diabetes Mellitus Type 2 Renal/ Medical History: Denies: Hx Peritoneal Dialysis Musculoskeletal Medical History: Reports Hx Arthritis Past Surgical History: Reports: Hx Abdominal Surgery - right inginual hernia repair, Hx Cholecystectomy - Immunizations Hx Diphtheria, Pertussis, Tetanus Vaccination: Yes Review of Systems - Review of Systems EENT: Sinus pressure, Other - Postnasal drainage -: Yes All other systems reviewed and negative Physical Exam - Vital signs Vitals: Temp Pulse Resp BP Pulse Ox 97.8 F 98 20 177/71 H 97 04/22/20 05:04 04/22/20 05:04 04/22/20 05:04 04/22/20 05:04 04/22/20 05:04 - General General appearance: Appears well, Alert In distress: None - HEENT Head: Normocephalic, Atraumatic Eyes: Normal Conjunctiva: Normal Eyelashes: Normal Pupils: PERRL Ears: Normal External canal: Normal Tympanic membrane: Normal Sinus: Other - Tenderness to percussion frontal sinuses. Nasal: Other - Mild edema of the bilateral nasal turbinates. Pharynx: Post nasal drainage. No: Potential airway comprom. Neck: Normal, Supple. No: Lymphadenopathy, Thyromegally - Respiratory Respiratory status: No respiratory distress Chest status: Nontender Breath sounds: Normal Chest palpation: Normal - Cardiovascular Rhythm: Regular Heart sounds: Normal auscultation - Neurological Neuro grossly intact: Yes Cognition: Normal Orientation: AAOx4 - Psychological Associated symptoms: Normal affect, Normal mood - Skin Skin Temperature: Warm Skin Moisture: Dry Skin Color: Normal Course - Re-evaluation Re-evalutation: 04/22/20 06:12 Patient's history and physical consistent with sinusitis. An EKG was done in triage per protocol. At 5:10 AM: Sinus rhythm at 91 bpm. Normal intervals. Incomplete right bundle branch block. Unchanged from prior EKG dated January 11, 2020. Patient has no risk factors for COVID-19. He is stable and appropriate for discharge and outpatient follow-up. Counseled him regarding the importance of outpatient follow-up with his primary doctor in the next few days. Advised he return here or any ER immediately with any new, persistent or worsening symptoms. He verbalized understood and agreed. - Vital Signs Vital signs: Temp Pulse Resp BP Pulse Ox 97.8 F 98 20 177/71 H 97 04/22/20 05:24 04/22/20 05:04 04/22/20 05:04 04/22/20 05:04 04/22/20 05:04 Discharge - Discharge Clinical Impression: Sinusitis Qualifiers: Sinusitis location: unspecified location Chronicity: acute Recurrence: not specified as recurrent Qualified Code(s): J01.90 - Acute sinusitis, unspecified Condition: Stable Disposition: HOME, SELF-CARE Instructions: Sinusitis ([facility]) Additional Instructions: Follow-up with your regular doctor in 2 to 3 days for reevaluation. Return here or any ER immediately with any new, persistent or worsening symptoms. Prescriptions: Loratadine [Allergy] 10 mg PO DAILY #20 tablet Fluticasone Propionate [Flonase Nasal [place] 50 Mcg/[place] 16 gm] 1 spray NASL Q12 #1 inhaler Referrals: DALIA MOSELEY PA-C [Primary Care Provider] - Follow up as needed
[2020-04-22 06:29] VITALS: BP 144/65
--- NOTE | 2020-04-22 07:21 | EKG REPORT ---
SEVERITY:- ABNORMAL ECG - SINUS RHYTHM INCOMPLETE RBBB AND LAFB : Confirmed by: Jersey Shepherd MD 22-Apr-2020 07:20:33
== END 2020-04-22 06:30 | disposition home or self-care (01) ==
LOC: ER 04:58
DX: J01.90 Acute sinusitis, unspecified (principal); R09.81 Nasal congestion; I10 Essential (primary) hypertension; E11.9 Type 2 diabetes mellitus without complications
CPT/HCPCS: 93005; 93010; 99283

== ENCOUNTER 2020-06-12 09:07 | Emergency (ER) | payer MEDICARE, BC ==
[2020-06-12 09:24] VITALS: BP 158/76
--- NOTE | 2020-06-12 10:34 | ER Document Report ---
ED Extremity Problem, Lower - General Chief Complaint: Foot Pain Stated Complaint: FOOT PAIN Time Seen by Provider: 06/12/20 10:24 Primary Care Provider: DALIA MOSELEY PA-C [Primary Care Provider] - Follow up as needed JEMMA CORRAL DPM [ACTIVE STAFF] - Follow up as needed Mode of Arrival: Ambulatory Information source: Patient Notes: 80-year-old male presented to ED for complaint of burning to bilateral feet. He is diabetic. 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 Patient is alert oriented respirations regular nonlabored speaking in full sentences. TRAVEL OUTSIDE OF THE [place] IN LAST 30 DAYS: No - HPI Patient complains to provider of: Pain Location: Foot Occurred: Other - Chronic Onset/Duration: Gradual Quality of pain: Burning Severity: Severe Pain Level: 5 Recent injury: No Associated symptoms: Painful ambulation Exacerbated by: Nothing Relieved by: Nothing - Related Data Allergies/Adverse Reactions: No Known Allergies Allergy (Verified 06/12/20 10:14) Past Medical History - General Information source: Patient - Social History Smoking Status: Never Smoker Chew tobacco use (# tins/day): No Frequency of alcohol use: None Drug Abuse: None Lives with: Family Family History: Other - Past Medical History Cardiac Medical History: Reports: Hx Hypercholesterolemia, Hx Hypertension Pulmonary Medical History: Reports: None EENT Medical History: Reports: None Neurological Medical History: Reports: None Endocrine Medical History: Reports: Hx Diabetes Mellitus Type 2 Renal/ Medical History: Reports: None Malignancy Medical History: Reports None GI Medical History: Reports: None Musculoskeletal Medical History: Reports Hx Arthritis Skin Medical History: Reports None Psychiatric Medical History: Reports: None Traumatic Medical History: Reports: None Infectious Medical History: Reports: None Past Surgical History: Reports: Hx Abdominal Surgery - right inginual hernia repair, Hx Cholecystectomy - Immunizations Immunizations up to date: Yes Hx Diphtheria, Pertussis, Tetanus Vaccination: Yes Review of Systems - Review of Systems Constitutional: No symptoms reported EENT: No symptoms reported Cardiovascular: No symptoms reported Respiratory: No symptoms reported Gastrointestinal: No symptoms reported Genitourinary: No symptoms reported Male Genitourinary: No symptoms reported Musculoskeletal: No symptoms reported Skin: No symptoms reported Hematologic/Lymphatic: No symptoms reported Neurological/Psychological: No symptoms reported -: Yes All other systems reviewed and negative Physical Exam - Vital signs Vitals: Temp Pulse Resp BP Pulse Ox 99.1 F 95 16 158/76 H 97 06/12/20 09:21 06/12/20 09:21 06/12/20 09:21 06/12/20 09:21 06/12/20 09:21 Interpretation: Normal - General General appearance: Appears well, Alert - HEENT Head: Normocephalic, Atraumatic Eyes: Normal Pupils: PERRL - Respiratory Respiratory status: No respiratory distress Chest status: Nontender Breath sounds: Normal Chest palpation: Normal - Cardiovascular Rhythm: Regular Heart sounds: Normal auscultation Murmur: No - Abdominal Inspection: Normal Distension: No distension Bowel sounds: Normal Tenderness: Nontender Organomegaly: No organomegaly - Back Back: Normal, Nontender - Extremities General upper extremity: Normal inspection, Nontender, Normal color, Normal ROM, Normal temperature General lower extremity: Normal inspection, Normal color, Normal ROM, Normal temperature, Normal weight bearing. No: Vito's sign Foot: Tender - Bottoms of both feet running, fungus to both great toenails - Neurological Neuro grossly intact: Yes Cognition: Normal Orientation: AAOx4 Be Coma Scale Eye Opening: Spontaneous [place] Coma Scale Verbal: Oriented [place] Coma Scale Motor: Obeys Commands Be Coma Scale Total: 15 Speech: Normal Motor strength normal: LUE, RUE, LLE, RLE Sensory: Normal - Psychological Associated symptoms: Normal affect, Normal mood - Skin Skin Temperature: Warm Skin Moisture: Dry Skin Color: Normal Course - Re-evaluation Re-evalutation: 06/12/20 10:32 Discussed with patient the use of Epson salt and the fact that diabetes causes the burning in the feet the best person to consult is podiatry will give name and number for podiatry. Patient using insoles which helps when walking. - Vital Signs Vital signs: Temp Pulse Resp BP Pulse Ox 99.1 F 95 16 158/76 H 97 06/12/20 10:30 06/12/20 10:30 06/12/20 10:30 06/12/20 10:30 06/12/20 10:30 Discharge - Discharge Clinical Impression: Burning both feet diabetic Condition: Stable Disposition: HOME, SELF-CARE Additional Instructions: You state you have burning to both feet. Epsom Salt Soaks Soak the wound area in a container of warm epsom salt water. If you can't get the wound area into a bucket or benavidez, use a folded towel soaked in the epsom salt solution and apply to the area. Use clean hot tap water (about the temperature of a very warm bath), mixing in about one (1) teaspoon for every pint of water. Two gallon --> 16 teaspoons Epsom Salts One gallon --> 8 teaspoons Epsom Salts Two quarts --> 4 teaspoons Epsom Salts One quart --> 2 teaspoons Epsom Salts Soak the wound for about 20 minutes while gently moving it around in the water. Repeat this four (4) times a day. FOLLOW-UP CARE: If you have been referred to a physician for follow-up care, call the physicians office for an appointment as you were instructed or within the next two days. If you experience worsening or a significant change in your symptoms, notify the physician immediately or return to the Emergency Department at any time for re-evaluation. Forms: Elevated Blood Pressure Referrals: DALIA MOSELEY PA-C [Primary Care Provider] - Follow up as needed JEMMA CORRAL DPM [ACTIVE STAFF] - Follow up as needed
== END 2020-06-12 10:30 | disposition home or self-care (01) ==
LOC: ER 09:07
DX: R20.2 Paresthesia of skin (principal); E11.69 Type 2 diabetes mellitus with other specified complication; B35.1 Tinea unguium; I10 Essential (primary) hypertension
CPT/HCPCS: 99283

== ENCOUNTER 2020-06-30 08:14 | Emergency (ER) | payer MEDICARE, BC ==
[2020-06-30 08:19] VITALS: BP 189/65
--- NOTE | 2020-06-30 09:23 | ER Document Report ---
HPI - HPI Time Seen by Provider: 06/30/20 08:45 Pain Level: 5 Context: Patient is a 80-year-old male with a history of diabetes who presents the emergency department with bilateral foot pain. Patient states that he has been using Epsom salts, but last night, his pain in his feet came back, despite Epsom salt baths. Patient was recently was treated for a sinus infection and was given Augmentin. His last dose was yesterday. - ROS Systems Reviewed and Negative: Yes All other systems reviewed and negative - CONSTITUTIONAL Constitutional: DENIES: Fever, Chills - EENT EENT: DENIES: Sore Throat, Ear Pain - NEURO Neurology: DENIES: Headache, Weakness - CARDIOVASCULAR Cardiovascular: DENIES: Chest pain - RESPIRATORY Respiratory: DENIES: Trouble Breathing, Coughing - GASTROINTESTINAL Gastrointestinal: DENIES: Abdominal Pain, Nausea, Patient vomiting - URINARY Urinary: DENIES: Dysuria, Urgency, Frequency - REPRODUCTIVE Reproductive: DENIES: : - MUSCULOSKELETAL Musculoskeletal: REPORTS: Extremity pain - Bilateral feet - DERM Skin Color: Erythema - Bilateral feet Past Medical History - General Information source: Patient - Social History Smoking Status: Never Smoker Chew tobacco use (# tins/day): No Frequency of alcohol use: None Drug Abuse: None Family History: Other Patient has homicidal ideation: No - Past Medical History Cardiac Medical History: Reports: Hx Hypercholesterolemia, Hx Hypertension Endocrine Medical History: Reports: Hx Diabetes Mellitus Type 2 Musculoskeletal Medical History: Reports Hx Arthritis Past Surgical History: Reports: Hx Abdominal Surgery - right inginual hernia repair, Hx Cholecystectomy - Immunizations Immunizations up to date: Yes Hx Diphtheria, Pertussis, Tetanus Vaccination: Yes Vertical Provider Document - CONSTITUTIONAL Agree With Documented VS: Yes Exam Limitations: No Limitations General Appearance: No Apparent Distress - INFECTION CONTROL TRAVEL OUTSIDE OF THE [place] IN LAST 30 DAYS: No - HEENT HEENT: Atraumatic, Normocephalic, PERRLA - NECK Neck: Normal Inspection - RESPIRATORY Respiratory: Breath Sounds Normal, No Respiratory Distress - CARDIOVASCULAR Cardiovascular: Regular Rate, Regular Rhythm Pulses: Normal: Radial, Posterior tibial, Dorsalis pedis - MUSCULOSKELETAL/EXTREMETIES Musculoskeletal/Extremeties: FROM - NEURO Level of Consciousness: Awake, Alert, Appropriate Motor/Sensory: No Motor Deficit, No Sensory Deficit - DERM Integumentary: Warm, Dry, Rash - Bilateral feet Course - Re-evaluation Re-evalutation: 06/30/20 09:21 Patient presents with symptoms most consistent with an acute cellulitis. Vitals within normal limits. Patient does not meet sepsis criteria is overall very well in appearance. Exam and history are not consistent with DVT. Patient will be started on coverage for both staph and strep. At this time will discharge with return precautions and follow-up recommendations. Verbal discharge instructions given a the bedside and opportunity for questions given. Medication warnings reviewed. Patient is in agreement with this plan and has verbalized understanding of return precautions and the need for primary care follow-up in the next 24-72 hours. - Vital Signs Vital signs: Temp Pulse Resp BP Pulse Ox 97.8 F 83 20 189/65 H 98 06/30/20 08:18 06/30/20 08:18 06/30/20 08:18 06/30/20 08:18 06/30/20 08:18 Discharge - Discharge Clinical Impression: Cellulitis of both feet Condition: Stable Disposition: HOME, SELF-CARE Additional Instructions: Your seen today in the emergency department for pain of your feet. Take all your antibiotics as prescribed. Please follow-up with your foot doctor and with your primary care provider in regards to this visit. If your symptoms worsen after being on your antibiotics for 3 to 4 days, return to the emergency department. You can take Tylenol 1000 mg every 6 hours as needed for your pain. Prescriptions: Clindamycin HCl [Cleocin 150 mg Capsule] 300 mg PO Q6 7 Days #56 capsule Referrals: DALIA MOSELEY PA-C [Primary Care Provider] - Follow up in 3-5 days
== END 2020-06-30 09:55 | disposition home or self-care (01) ==
LOC: ER 08:14
DX: L03.116 Cellulitis of left lower limb (principal); L03.115 Cellulitis of right lower limb; M79.672 Pain in left foot; M79.671 Pain in right foot; E11.9 Type 2 diabetes mellitus without complications; I10 Essential (primary) hypertension
CPT/HCPCS: 99283

== ENCOUNTER 2020-08-16 10:20 | Emergency (ER) | payer MEDICARE, BC ==
--- NOTE | 2020-08-16 10:27 | ER Document Report ---
ED Medical Screen (RME) - General Stated Complaint: EYE DROOP Time Seen by Provider: 08/16/20 10:21 Primary Care Provider: DALIA MOSELEY PA-C [Primary Care Provider] - Follow up as needed Notes: Patient presents complaining of left facial drooping and left arm numbness. Patient does report a history of diabetes. Patient very hard of hearing and is a poor historian. I have greeted and performed a rapid initial assessment of this patient. A comprehensive ED assessment and evaluation of the patient, analysis of test results and completion of the medical decision making process will be conducted by additional ED providers. TRAVEL OUTSIDE OF THE [place] IN LAST 30 DAYS: No - Related Data Allergies/Adverse Reactions: No Known Allergies Allergy (Verified 06/12/20 10:14) Past Medical History - Past Medical History Cardiac Medical History: Reports: Hx Hypercholesterolemia, Hx Hypertension Endocrine Medical History: Reports: Hx Diabetes Mellitus Type 2 Musculoskeltal Medical History: Reports Hx Arthritis Past Surgical History: Reports: Hx Abdominal Surgery - right inginual hernia repair, Hx Cholecystectomy - Immunizations Immunizations up to date: Yes Hx Diphtheria, Pertussis, Tetanus Vaccination: Yes Physical Exam - Neurological Be Coma Scale Eye Opening: Spontaneous [place] Line Coma Scale Verbal: Oriented [place] Line Coma Scale Motor: Obeys Commands Be Coma Scale Total: 15 Sensory: Altered light touch - Left arm Doctor's Discharge - Discharge Referrals: DALIA MOSELEY PA-C [Primary Care Provider] - Follow up as needed
[2020-08-16 10:53] LABS: ABSOLUTE BASOPHILS # (AUTO) 0.1 10^3/uL (0.0-0.2); ABSOLUTE EOSINOPHILS # (AUTO) 0.2 10^3/uL (0.0-0.6); ABSOLUTE LYMPHOCYTES (AUTO) 1.3 10^3/uL (0.5-4.7); ABSOLUTE MONOCYTES (AUTO) 0.7 10^3/uL (0.1-1.4); ABSOLUTE NEUT (AUTO) 5.9 10^3/uL (1.7-8.2); BASOPHILS % (AUTO) 1.4 % (0-2); EOSINOPHILS % (AUTO) 2.4 % (0-6); LYMPHOCYTES % (AUTO) 16.1 % (13-45); MEAN CORPUSCULAR HEMOGLOBIN 29.1 pg (27.0-33.4); MEAN CORPUSCULAR HGB CONC 34.2 g/dL (32.0-36.0); MEAN CORPUSCULAR VOLUME 85 fl (80-97); MONOCYTES % (AUTO) 8.2 % (3-13); PLATELET COUNT 156 10^3/uL (150-450); RED BLOOD COUNT 4.46 10^6/uL (4.35-5.55); RED CELL DISTRIBUTION WIDTH 14.6 % (11.5-14.0); SEGMENTED NEUTROPHILS % (AUTO) 71.9 % (42-78); TOTAL CELLS COUNTED % (AUTO) 100 %; WHITE BLOOD COUNT 8.1 10^3/uL (4.0-10.5)
--- NOTE | 2020-08-16 10:53 | RADIOLOGY REPORT (SQ) ---
EXAM DESCRIPTION: CT HEAD WITHOUT IMAGES COMPLETED DATE/TIME: 08/16/2020 10:35 am REASON FOR STUDY: facial droop left-sided facial weakness left arm weakness COMPARISON: CT brain 12/20/2018 TECHNIQUE: Axial images acquired through the brain without intravenous contrast. Images reviewed wi th bone, brain and subdural windows. Additional sagittal and coronal reconstructions were generated. Images stored on PACS. All CT scanners at this facility use dose modulation, iterative reconstruction, and/or weight based d osing when appropriate to reduce radiation dose to as low as reasonably achievable (ALARA). [facility]: Dose Right [facility]: CareDose [facility]: Dose Right [facility]: Teradose 4D [facility]: Eagle Alpha RADIATION DOSE: CT Rad equipment meets quality standard of care and radiation dose reduction techniq ues were employed. CTDIvol: 53.2 mGy. DLP: 1044 mGy-cm. mGy. LIMITATIONS: None. FINDINGS: VENTRICLES: Normal size and contour. CEREBRUM: No CT evidence of acute large territory ischemic change, acute intracranial hemorrhage, mas s effect, or midline shift. Mild spotty bifrontal and biparietal chronic small vessel ischemic change. Findings discussed with [place] in the emergency room as a critical finding, CT code stroke 1040 hours 08/16/2020. CEREBELLUM: No masses. No hemorrhage. No alteration of density. No evidence for acute infarction. EXTRAAXIAL SPACES: No fluid collections. No masses. ORBITS AND GLOBE: No intra- or extraconal masses. Post bilateral cataract surgery. CALVARIUM: No fracture. PARANASAL SINUSES: No fluid or mucosal thickening. SOFT TISSUES: No mass or hematoma. OTHER: No other significant finding. IMPRESSION: Minimal chronic spotty white matter disease. No acute findings EVIDENCE OF ACUTE STROKE: NO. COMMENT: Quality ID # [id number]: Final reports with documentation of one or more dose reduction techniques (e.g., Automated exposure control, adjustment of the mA and/or kV according to patient size, use of iterative reconstruction technique) TECHNICAL DOCUMENTATION: JOB ID: [id number] 2010 [employer]- All Rights Reserved Reading location - IP/workstation name: [email or web address]
[2020-08-16 11:01] LABS: INTERNATIONAL RATION (INR) 1.02
[2020-08-16 11:02] LABS: PARTIAL THROMBOPLASTIN TIME 29.6 SEC (23.5-35.8)
[2020-08-16 11:04] LABS: PROTHROMBIN TIME 13.6 SEC (11.4-15.4)
[2020-08-16 11:12] LABS: ALBUMIN 4.4 g/dL (3.5-5.0); ALKALINE PHOSPHATASE 78 U/L (38-126); ANION GAP 11 (5-19); ASPARTATE AMINO TRANSFERASE 20 U/L (17-59); BILIRUBIN,DIRECT 0.2 mg/dL (0.0-0.4); BILIRUBIN,TOTAL 0.8 mg/dL (0.2-1.3); BLOOD UREA NITROGEN 17 mg/dL (7-20); CALCIUM 9.2 mg/dL (8.4-10.2); CARBON DIOXIDE 24 mmol/L (22-30); CHLORIDE 95 mmol/L (98-107); CREATINE KINASE 28 U/L (55-170); GLUCOSE 274 mg/dL (75-110); POTASSIUM 4.3 mmol/L (3.6-5.0); TOTAL PROTEIN 6.8 g/dL (6.3-8.2)
--- NOTE | 2020-08-16 11:16 | RADIOLOGY REPORT (SQ) ---
EXAM DESCRIPTION: CHEST SINGLE VIEW IMAGES COMPLETED DATE/TIME: 08/16/2020 10:36 am REASON FOR STUDY: facial droop COMPARISON: AP chest 01/11/2020 EXAM PARAMETERS: NUMBER OF VIEWS: One view. TECHNIQUE: Single frontal radiographic view of the chest acquired. RADIATION DOSE: NA LIMITATIONS: None. FINDINGS: LUNGS AND PLEURA: No opacities, masses or pneumothorax. No pleural effusion. MEDIASTINUM AND HILAR STRUCTURES: No masses. Contour normal. HEART AND VASCULAR STRUCTURES: Heart normal in size. Normal vasculature. BONES: No acute findings. HARDWARE: None in the chest. OTHER: No other significant finding. IMPRESSION: NO ACUTE RADIOGRAPHIC FINDING IN THE CHEST. TECHNICAL DOCUMENTATION: JOB ID: [id number] 2010 [email or web address]- All Rights Reserved Reading location - IP/workstation name: [email or web address]
[2020-08-16 11:24] LABS: CREATINE KINASE MB 0.94 ng/mL (<4.55)
[2020-08-16 11:27] LABS: TROPONIN I < 0.012 ng/mL
--- NOTE | 2020-08-16 11:43 | ER Document Report ---
Entered by BJ ROSEN SCRIBE 08/16/20 1100 Acting as scribe for:ISAURA BILLS MD ED General - General Chief Complaint: Doesn't Feel Right Stated Complaint: EYE DROOP Time Seen by Provider: 08/16/20 10:21 Primary Care Provider: DALIA MOSELEY PA-C [Primary Care Provider] - Follow up in 3-5 days Mode of Arrival: Ambulatory Information source: Patient Notes: This 80 year old male patient presents to the emergency department today with complaints of pain above his left eye that he calls "sinus problems". He reports he has been seeing an ENT for years for what he indicates is left frontal sinus issues. Patient states he gets frequent sinus rinses and mentions at one point something about "them putting a camera up to look around and they popped a blister". He has been treated with antibiotics in the past for sinus related problems. He mentions that he has had a sore throat for the last two days as well. Patient has no numbness, weakness, or speech abnormalities. The patient's left medial supraorbital forehead discomfort seems to be a chronic problem because he frequently mentions seeing an ENT doctor who cannot fix the problem. He was discussing the desire to have it fixed today. The only new complaint seems to be some discomfort he noticed down in his throat for the past 2 days. His history about the camera being placed up his nose and a blister being popped occurred at the same time he had a poison caterina rash on his face and his confusing description of the event. The patient is not a TPA candidate because he does not have any CVA symptoms. In this area COVID, he will be tested because his vague symptoms could very easily be due to the COVID-19 virus. TRAVEL OUTSIDE OF THE [place] IN LAST 30 DAYS: No - Related Data Allergies/Adverse Reactions: No Known Allergies Allergy (Verified 06/12/20 10:14) Past Medical History - General Information source: Patient - Social History Smoking Status: Never Smoker Cigarette use (# per day): No Frequency of alcohol use: None Drug Abuse: None Lives with: Family Family History: Reviewed & Not Pertinent, Other - Past Medical History Cardiac Medical History: Reports: Hx Hypercholesterolemia, Hx Hypertension Endocrine Medical History: Reports: Hx Diabetes Mellitus Type 2 Musculoskeletal Medical History: Reports Hx Arthritis Past Surgical History: Reports: Hx Abdominal Surgery - right inginual hernia repair, Hx Cholecystectomy - Immunizations Immunizations up to date: Yes Hx Diphtheria, Pertussis, Tetanus Vaccination: Yes Review of Systems - Review of Systems Constitutional: No symptoms reported EENT: See HPI, Throat pain, Other - left frontal sinus pain Cardiovascular: No symptoms reported Respiratory: No symptoms reported Gastrointestinal: No symptoms reported Genitourinary: No symptoms reported Male Genitourinary: No symptoms reported Musculoskeletal: No symptoms reported Skin: No symptoms reported Hematologic/Lymphatic: No symptoms reported Neurological/Psychological: No symptoms reported -: Yes All other systems reviewed and negative Physical Exam - Vital signs Vitals: Temp Pulse Resp BP Pulse Ox 97.9 F 82 18 168/72 H 96 08/16/20 10:27 08/16/20 10:27 08/16/20 10:27 08/16/20 10:27 08/16/20 10:27 - Notes Notes: Physical Exam: General: Alert, appears well. HEENT: Normocephalic. Atraumatic. PERRL. Extraocular movements intact. Oropharynx clear. Left medial supraorbital ridge has increased sensitivity, no real tenderness of the frontal or maxillary sinuses. Neck: Supple. Non-tender. Respiratory: No respiratory distress. Clear and equal breath sounds bilaterally. Cardiovascular: Regular rate and rhythm. Abdominal: Normal Inspection. Non-tender. No distension. Normal Bowel Sounds. Back: No gross abnormalities. Extremities: Moves all four extremities. Upper extremities: Normal inspection. Normal ROM. Lower extremities: Normal inspection. No edema. Normal ROM. Neurological: Slightly demented. AAOx4. Normal speech. No motor deficits. Smile is symmetric, protrudes tongue straight out. Good district gauger strength and coordination. Psychological: Normal affect. Normal Mood. Skin: Warm. Dry. Normal color. Course - Re-evaluation Re-evalutation: 08/16/20 12:15 The patient was evaluated during the global COVID-19 pandemic and that diagnosis was suspected/considered upon their initial presentation. Their evaluation, treatment and testing was consistent with current guidelines for patients who present with complaints or symptoms that may be related to COVID-19. - Vital Signs Vital signs: Temp Pulse Resp BP Pulse Ox 98.8 F 78 21 H 121/70 95 08/16/20 10:45 08/16/20 10:50 08/16/20 13:01 08/16/20 13:01 08/16/20 13:01 - Laboratory Result Diagrams: 08/16/20 10:42 08/16/20 10:42 Laboratory results interpreted by me: 08/16/20 08/16/20 10:42 10:42 Hgb 13.0 L RDW 14.6 H Sodium 129.9 L Chloride 95 L Glucose 274 H Creatine Kinase 28 L - Diagnostic Test Radiology reviewed: Image reviewed, Reports reviewed - CT of the head shows chronic spotty white matter disease. Paranasal sinuses are clear. 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 You should keep your appointment with your ear nose and throat doctor next week to recheck it. Your complaints of just not feeling well, also do not have an obvious explanation. That is the reason the COVID-19 test was done. Taking Tylenol for your discomfort may help you feel better while you are waiting for the COVID test. Your blood sugar was elevated today at 274. This is called hyperglycemia. Your serum sodium was a little low today at 129.9, this is called hyponatremia. The hyponatremia may be due to the diuretic you take for your blood pressure. Be sure to check your sugars at least once a day at home. Increase sodium in your diet for the next 2 to 3 days. Self isolate at home until you get the results of the cover test, it usually takes 3 days. Follow-up with your primary care provider next week to recheck your lab work. This will allow any adjustments in your medications to be done at that time. Take copies of the lab work from today with you to see your primary care doctor next week. RETURN TO THE EMERGENCY ROOM IF ANY NEW OR WORSENING SYMPTOMS. Referrals: DALIA MOSELEY PA-C [Primary Care Provider] - Follow up in 3-5 days I personally performed the services described in the documentation, reviewed and edited the documentation which was dictated to the scribe in my presence, and it accurately records my words and actions.
[2020-08-16 14:44] VITALS: BP 132/84
--- NOTE | 2020-08-17 00:48 | EKG REPORT ---
SEVERITY:- ABNORMAL ECG - SINUS RHYTHM INCOMPLETE RBBB AND LAFB : Confirmed by: Madison Blood MD 17-Aug-2020 00:47:20
== END 2020-08-16 14:42 | disposition home or self-care (01) ==
LOC: ER 10:20
DX: J02.9 Acute pharyngitis, unspecified (principal); R29.810 Facial weakness; E87.1 Hypo-osmolality and hyponatremia; R51.9 Headache, unspecified; E11.65 Type 2 diabetes mellitus with hyperglycemia; E78.00 Pure hypercholesterolemia, unspecified; I10 Essential (primary) hypertension; Z20.828 Contact with and (suspected) exposure to other viral communicable diseases
CPT/HCPCS: 36415; 70450; 71045; 80053; 82550; 82553; 84484; 85025; 85610; 85730; 87070; 87635; 87880; 93005; 93010; 99285; C9803

== ENCOUNTER → 2020-08-22 | Outpatient (CLI) | payer MEDICARE, BC ==
[2020-08-22 13:14] VITALS: BP 191/78
--- NOTE | 2020-08-22 13:14 | ER RDC ASSESSMENT REPORT ---
Intake - In the Last 14 days Have you traveled outside [place]?: No Have you been in close contact with someone CONFIRMED: No Worked in Healthcare?: No - Symptoms Subjective Fever(Millis feverish): No Chills: No Muscule Aches: No Runny Nose: No Sore Throat: No Cough (New or worsening chronic cough): No Shortness of breath: No Nausea or Vomiting: No Headache: No Abdominal Pain: No Diarrhea(3 or more loose stools in last 24 hours): No - Do you have any of the following Chronic lung disease: Asthma or emphysema or COPD: No Cystic Fibrosis: No Diabetes: Yes High Blood Pressure: Yes Cardiovascular Disease: Yes Chronic Kidney Disease: No Chronic Liver Disease: No Chronic blood disorder like Sickle Cell Disease: No Weak immune system due to disease or medication: No Neurologic condition that limits movement: No Developmental delay - Moderate to Severe: No Recent (within past 2 weeks) or current : No Morbid Obesity (>100 pounds over ideal weight): No Obesity Comment: Height 5 feet 8 inches weight 206 pounds - Objective Temperature: 98.5 F Pulse Rate: 77 Respiratory Rate: 16 Blood Pressure: 191/78 O2 Sat by Pulse Oximetry: 95 Objective: Given above, testing performed: If Testing Performed: Test Specimen Type Sent to General - General Information source: Patient Notes: Patient here at [facility] for cover testing. Patient had been seen in the ED and doctors appointments earlier in the week has seasonal allergies. Patient denies any symptoms or known positive exposure at this point. - Related Data Allergies/Adverse Reactions: No Known Allergies Allergy (Verified 06/12/20 10:14) Past Medical History - General Information source: Patient - Social History Smoking Status: Never Smoker Family History: Reviewed & Not Pertinent, Other - Past Medical History Cardiac Medical History: Reports: Hx Hypercholesterolemia, Hx Hypertension Endocrine Medical History: Reports: Hx Diabetes Mellitus Type 2 Renal/ Medical History: Denies: Hx Peritoneal Dialysis Musculoskeletal Medical History: Reports Hx Arthritis Past Surgical History: Reports: Hx Abdominal Surgery - right inginual hernia repair, Hx Cholecystectomy Physical Exam - General General appearance: Appears well, Alert In distress: None Notes: PHYSICAL EXAMINATION: GENERAL: Well-appearing and in no acute distress. HEAD: Atraumatic, normocephalic. EYES: sclera anicteric, conjunctiva are normal. ENT: nares patent. Moist mucous membranes. NECK: Normal range of motion, supple without lymphadenopathy LUNGS: CTAB and equal. No wheezes rales or rhonchi. Respirations even and unlabored lung sounds clear HEART: Regular rate and rhythm without murmurs ABDOMEN: Soft, nontender, normal bowel sounds, no guarding. EXTREMITIES: Normal range of motion, no pitting edema. No cyanosis. NEUROLOGICAL: Cranial nerves grossly intact. Normal speech. Normal gait. PSYCH: Normal mood, normal affect. SKIN: Warm, Dry, normal turgor, no rashes or lesions noted Diagnostic Results Laboratory Results: Pending covid testing results. Patient provided instructions regarding COVID to include: As a person under investigation for Covid 19, the [place] department of Health and Human Services, division of public health advises you to adhere to the following guidance until your test results are reported to you. If your test result is positive, you will receive additional information from your provider and your local health department at that time. Remain at home until you are cleared by the health provider or public health authorities. Keep a log of visitors to your home, notify any visitors to your home of your isolation status. If you plan to move to a new address or leave the county, notify the local health department in your County. Call your doctor or seek care if you have an urgent medical need. Before seeking medical care, call ahead to get instructions from the provider before arriving at the medical office clinic or hospital. Notify them that you are being tested for the virus that causes Covid 19 so that arrangements can be made, as necessary, to prevent transmission to others in the healthcare setting. Next, notify the local health department in your county. If a medical emergency arises and you need to call 911, inform the first responders that you are being tested for the virus that causes Covid 19. Next, notify the local health department in your county. Patient Education/Counseling Counseling/Education: Patient presents with upper respiratory symptoms worrisome for possible Covid 19. Patient does not have emergency worring symptoms such as difficulty breathi ng, shortness of breath, chest pain, pressure, confusion or cyanosis. Patient appears suitable for discharge. Patient instructed to follow-up with PCP Jazz rose. Patient's vital signs are stable and patient is nontoxic in appearance. Good return precautions have been discussed with patient, patient verbalized understanding and is agreeable with discharge plan of care at this time. [facility] Discharge - Discharge Clinical Impression: Encounter for screening laboratory testing for COVID-19 virus in asymptomatic patient Condition: Stable Disposition: Home; Selfcare
== END ==
LOC: RDC 12:30
PROVIDERS: ATTEND Nurse Practitioner Family
DX: Z03.818 Encounter for observation for suspected exposure to other biological agents ruled out (principal)
CPT/HCPCS: U0003; C9803; 87635

== ENCOUNTER 2020-09-05 10:25 | Emergency (ER) | payer MEDICARE, BC ==
--- NOTE | 2020-09-05 11:07 | ER Document Report ---
ED Medical Screen (RME) - General Chief Complaint: Neck Problem Stated Complaint: NECK PAIN Time Seen by Provider: 09/05/20 10:37 Primary Care Provider: DALIA MOSELEY PA-C [Primary Care Provider] - Follow up as needed TRAVEL OUTSIDE OF THE [place] IN LAST 30 DAYS: No - HPI Notes: 09/05/20 11:06 80-year-old male with past medical history of hypertension, diabetes, hyperlipidemia, chronic sinusitis to the emergency department with complaints of anterior upper chest pain that radiates into his neck off the side of his anterior neck and into his face for about 1 week. He states he feels some numbness and tingling. He denies any difficulty with speech. He denies any facial droop. He denies any shortness of breath or diaphoresis with it. He states he feels uncomfortable in the upper chest around the collarbone and states he feels like his larynx is irritated. On brief medical screening exam he has no tenderness to palpation to the chest wall. His lungs are clear to au scultation. I performed a brief medical screening exam on the patient determined that the patient needs further evaluation and management by main side provider. I have placed initial orders to help expedite care. - Related Data Allergies/Adverse Reactions: No Known Allergies Allergy (Verified 09/05/20 10:58) Past Medical History - Past Medical History Cardiac Medical History: Reports: Hx Hypercholesterolemia, Hx Hypertension Endocrine Medical History: Reports: Hx Diabetes Mellitus Type 2 Renal/ Medical History: Denies: Hx Peritoneal Dialysis Musculoskeltal Medical History: Reports Hx Arthritis Past Surgical History: Reports: Hx Abdominal Surgery - right inginual hernia repair, Hx Cholecystectomy - Immunizations Immunizations up to date: Yes Hx Diphtheria, Pertussis, Tetanus Vaccination: Yes Physical Exam - Vital signs Vitals: Temp Pulse Resp BP Pulse Ox 97.8 F 85 18 163/59 H 96 09/05/20 10:35 09/05/20 10:35 09/05/20 10:35 09/05/20 10:35 09/05/20 10:35 Course - Vital Signs Vital signs: Temp Pulse Resp BP Pulse Ox 97.8 F 85 18 163/59 H 96 09/05/20 10:35 09/05/20 10:35 09/05/20 10:35 09/05/20 10:35 09/05/20 10:35 Doctor's Discharge - Discharge Referrals: DALIA MOSELEY PA-C [Primary Care Provider] - Follow up as needed
[2020-09-05 11:35] LABS: ABSOLUTE BASOPHILS # (AUTO) 0.1 10^3/uL (0.0-0.2); ABSOLUTE EOSINOPHILS # (AUTO) 0.1 10^3/uL (0.0-0.6); ABSOLUTE LYMPHOCYTES (AUTO) 1.3 10^3/uL (0.5-4.7); ABSOLUTE MONOCYTES (AUTO) 0.4 10^3/uL (0.1-1.4); ABSOLUTE NEUT (AUTO) 6.4 10^3/uL (1.7-8.2); BASOPHILS % (AUTO) 1.2 % (0-2); EOSINOPHILS % (AUTO) 0.9 % (0-6); HEMATOCRIT 38.5 % (37.9-51.0); HEMOGLOBIN 12.9 g/dL (13.5-17.0); LYMPHOCYTES % (AUTO) 15.6 % (13-45); MEAN CORPUSCULAR HEMOGLOBIN 29.1 pg (27.0-33.4); MEAN CORPUSCULAR HGB CONC 33.6 g/dL (32.0-36.0); MEAN CORPUSCULAR VOLUME 87 fl (80-97); MONOCYTES % (AUTO) 4.9 % (3-13); PLATELET COUNT 178 10^3/uL (150-450); RED BLOOD COUNT 4.45 10^6/uL (4.35-5.55); RED CELL DISTRIBUTION WIDTH 14.5 % (11.5-14.0); SEGMENTED NEUTROPHILS % (AUTO) 77.4 % (42-78); TOTAL CELLS COUNTED % (AUTO) 100 %; WHITE BLOOD COUNT 8.3 10^3/uL (4.0-10.5)
[2020-09-05 11:40] LABS: INTERNATIONAL RATION (INR) 0.99; PROTHROMBIN TIME 13.3 SEC (11.4-15.4)
[2020-09-05 11:41] LABS: PARTIAL THROMBOPLASTIN TIME 30.5 SEC (23.5-35.8)
[2020-09-05 11:52] LABS: ALBUMIN 4.6 g/dL (3.5-5.0); ALKALINE PHOSPHATASE 81 U/L (38-126); ANION GAP 12 (5-19); ASPARTATE AMINO TRANSFERASE 21 U/L (17-59); BILIRUBIN,DIRECT 0.1 mg/dL (0.0-0.4); BLOOD UREA NITROGEN 22 mg/dL (7-20); CALCIUM 9.9 mg/dL (8.4-10.2); CARBON DIOXIDE 26 mmol/L (22-30); CHLORIDE 97 mmol/L (98-107); GLUCOSE 160 mg/dL (75-110); POTASSIUM 4.5 mmol/L (3.6-5.0); TOTAL PROTEIN 7.1 g/dL (6.3-8.2)
[2020-09-05] MEDS ORDERED: LIDOCAINE 2% VISCOUS SOLN 15 ML UDCUP PO ONE (11:55)
[2020-09-05] MEDS ORDERED: MAG HYDROX/AL HYDROX/SIMETH SUSP 30 ML UDCUP PO ONE (11:55)
[2020-09-05] MEDS ORDERED: METOCLOPRAMIDE HCL ORAL SOLN 10 MG/10 ML UDCUP PO ONE (11:55)
--- NOTE | 2020-09-05 11:56 | ER Document Report ---
ED General - General Chief Complaint: Neck Problem Stated Complaint: NECK PAIN Time Seen by Provider: 09/05/20 10:37 Primary Care Provider: DALIA MOSELEY PA-C [Primary Care Provider] - Follow up as needed Notes: 80-year-old male with a host of chronic medical issues including reflux and sinus problems presents with tingling and discomfort in his chest going up his neck to both jaws ears and forehead. Is been going on for 3 weeks. Sometimes worse with food and started out as "indigestion" he is on an acid medication every day. He denies henrik chest pain pressure or shortness of breath he denies nausea and vomiting and has been present almost all the time for the last 2 to 3 weeks. He saw ENT in the last couple of days who did a full exam and told him there is nothing wrong with his ears nose throat or larynx. No voice change no fever no trismus. TRAVEL OUTSIDE OF THE [place] IN LAST 30 DAYS: No - Related Data Allergies/Adverse Reactions: No Known Allergies Allergy (Verified 09/05/20 10:58) Home Medications: dm. cholesterol. htn Past Medical History - General Information source: Patient - Social History Smoking Status: Unknown if Ever Smoked Chew tobacco use (# tins/day): No Frequency of alcohol use: None Drug Abuse: None Family History: Reviewed & Not Pertinent, Other Patient has homicidal ideation: No - Past Medical History Cardiac Medical History: Reports: Hx Hypercholesterolemia, Hx Hypertension Endocrine Medical History: Reports: Hx Diabetes Mellitus Type 2 Renal/ Medical History: Denies: Hx Peritoneal Dialysis Musculoskeletal Medical History: Reports Hx Arthritis Past Surgical History: Reports: Hx Abdominal Surgery - right inginual hernia repair, Hx Cholecystectomy - Immunizations Immunizations up to date: Yes Hx Diphtheria, Pertussis, Tetanus Vaccination: Yes Review of Systems - Review of Systems Notes: REVIEW OF SYSTEMS GEN: Denies fever, chills, weight loss ENT: Neck forehead pain EYES: Denies blurry vision, eye pain, discharge CV: Chest RESP: Denies cough, shortness of breath, wheezing GI: Denies abdominal pain, nausea, vomiting, diarrhea MSK: Denies joint pain/swelling, edema, SKIN: Denies rash, skin lesions LYMPH: Denies swollen glands/lymph nodes NEURO: Denies headache, focal weakness or numbness, dizziness PSYCH: Denies depression, suicidal or homicidal ideation PHYSICAL EXAMINATION General: No acute distress, well-nourished Head: Atraumatic, normocephalic ENT: Mouth normal, oropharynx moist, no exudates or tonsillar enlargement Eyes: Conjunctiva normal, pupils equal, lids normal Neck: No JVD, supple, no guarding CVS: Normal rate, regular rhythm, no murmurs Resp: No resp distress, equal and normal breath sounds bilaterally GI: Nondistended, soft, no tenderness to palpation, no rebound or guarding Ext: No deformities, no edema, normal range of motion in upper and lower ext Back: No CVA or midline TTP Skin: No rash, warm Lymphatic: No lymphadeopathy noted Neuro: Awake, alert. Face symmetric. GCS 15. Physical Exam - Vital signs Vitals: Temp Pulse Resp BP Pulse Ox 97.8 F 85 18 163/59 H 96 09/05/20 10:35 09/05/20 10:35 09/05/20 10:35 09/05/20 10:35 09/05/20 10:35 Course - Re-evaluation Re-evalutation: 09/05/20 12:21 Patient presents with discomfort in chest and neck. It is worse after eating and has a history of reflux, it is quite atypical for ACS given that his EKG and troponin negative and my suspicion is low enough that I do not think requires further work-up for this at this time There is no sign of obstruction edema or infection anywhere from his chest to the top of his head do not think sinusitis His voice is normal Based on his ED work-up and response to GI cocktail I think and go to add Pepcid, and discharge him home to follow-up with his primary care I have discussed with the patient there likely diagnosis, aftercare plan, follow-up plans and my usual and customary return precautions. They verbalized understanding of this. - Vital Signs Vital signs: Temp Pulse Resp BP Pulse Ox 97.8 F 85 18 163/59 H 96 09/05/20 10:58 09/05/20 10:35 09/05/20 10:35 09/05/20 10:35 09/05/20 10:35 - Laboratory Result Diagrams: 09/05/20 11:15 09/05/20 11:15 Laboratory results interpreted by me: 09/05/20 09/05/20 11:15 11:15 Hgb 12.9 L RDW 14.5 H Sodium 134.6 L Chloride 97 L BUN 22 H Glucose 160 H - Diagnostic Test Radiology reviewed: Image reviewed, Reports reviewed - EKG Interpretation by Me EKG shows normal: Sinus rhythm Rate: Normal Rhythm: NSR - ST segments flat no elevation depression T waves normal without inversion No signs of right heart strain No on a ranch block When compared to previous EKG there are: Previous EKG unavailable Discharge - Discharge Clinical Impression: Chest discomfort Condition: Good Disposition: HOME, SELF-CARE Prescriptions: Famotidine [Pepcid] 20 mg PO BID #20 tablet Referrals: DALIA MOSELEY PA-C [Primary Care Provider] - Follow up as needed
--- NOTE | 2020-09-05 12:11 | RADIOLOGY REPORT (SQ) ---
EXAM DESCRIPTION: CHEST 2 VIEWS IMAGES COMPLETED DATE/TIME: 09/05/2020 11:32 am REASON FOR STUDY: upper chest pain COMPARISON: 08/16/2020 EXAM PARAMETERS: NUMBER OF VIEWS: two views TECHNIQUE: Digital Frontal and Lateral radiographic views of the chest acquired. RADIATION DOSE: NA LIMITATIONS: none FINDINGS: LUNGS AND PLEURA: No opacities, masses or pneumothorax. No pleural effusion. MEDIASTINUM AND HILAR STRUCTURES: No masses or contour abnormalities. HEART AND VASCULAR STRUCTURES: Heart normal size. No evidence for failure. BONES: No acute findings. HARDWARE: None in the chest. OTHER: No other significant finding. IMPRESSION: NO ACUTE RADIOGRAPHIC FINDING IN THE CHEST. TECHNICAL DOCUMENTATION: JOB ID: [id number] 2010 [employer]- All Rights Reserved Reading location - IP/workstation name: [email or web address]
[2020-09-05 12:46] VITALS: BP 143/52
--- NOTE | 2020-09-05 13:14 | EKG REPORT ---
SEVERITY:- ABNORMAL ECG - SINUS RHYTHM INCOMPLETE RBBB AND LAFB : Confirmed by: Jersey Shepherd MD 05-Sep-2020 13:13:15
== END 2020-09-05 12:47 | disposition home or self-care (01) ==
LOC: ER 10:25
DX: R09.89 Other specified symptoms and signs involving the circulatory and respiratory systems (principal); R20.2 Paresthesia of skin; E78.00 Pure hypercholesterolemia, unspecified; I10 Essential (primary) hypertension; E11.9 Type 2 diabetes mellitus without complications; K21.9 Gastro-esophageal reflux disease without esophagitis; Z79.899 Other long term (current) drug therapy
CPT/HCPCS: 93005; 99285; 36415; 85025; 85610; 85730; 80053; 84484; 71046; 93010; J3490; A9270 ×2

== ENCOUNTER 2020-09-22 02:37 | Emergency (ER) | payer MEDICARE, BC ==
[2020-09-22 03:19] LABS: ABSOLUTE BASOPHILS # (AUTO) 0.1 10^3/uL (0.0-0.2); ABSOLUTE EOSINOPHILS # (AUTO) 0.1 10^3/uL (0.0-0.6); ABSOLUTE LYMPHOCYTES (AUTO) 1.6 10^3/uL (0.5-4.7); ABSOLUTE MONOCYTES (AUTO) 0.9 10^3/uL (0.1-1.4); ABSOLUTE NEUT (AUTO) 6.3 10^3/uL (1.7-8.2); BASOPHILS % (AUTO) 0.9 % (0-2); EOSINOPHILS % (AUTO) 1.2 % (0-6); HEMATOCRIT 34.4 % (37.9-51.0); HEMOGLOBIN 11.8 g/dL (13.5-17.0); LYMPHOCYTES % (AUTO) 17.8 % (13-45); MEAN CORPUSCULAR HEMOGLOBIN 29.3 pg (27.0-33.4); MEAN CORPUSCULAR HGB CONC 34.3 g/dL (32.0-36.0); MEAN CORPUSCULAR VOLUME 85 fl (80-97); MONOCYTES % (AUTO) 10.3 % (3-13); PLATELET COUNT 160 10^3/uL (150-450); RED BLOOD COUNT 4.02 10^6/uL (4.35-5.55); RED CELL DISTRIBUTION WIDTH 14.3 % (11.5-14.0); SEGMENTED NEUTROPHILS % (AUTO) 69.8 % (42-78); TOTAL CELLS COUNTED % (AUTO) 100 %; WHITE BLOOD COUNT 9.1 10^3/uL (4.0-10.5)
[2020-09-22 03:39] LABS: ALBUMIN 3.7 g/dL (3.5-5.0); ALKALINE PHOSPHATASE 76 U/L (38-126); ANION GAP 10 (5-19); ASPARTATE AMINO TRANSFERASE 19 U/L (17-59); BILIRUBIN,DIRECT 0.1 mg/dL (0.0-0.4); BILIRUBIN,TOTAL 0.6 mg/dL (0.2-1.3); BLOOD UREA NITROGEN 22 mg/dL (7-20); CALCIUM 8.8 mg/dL (8.4-10.2); CARBON DIOXIDE 22 mmol/L (22-30); CHLORIDE 91 mmol/L (98-107); GLUCOSE 178 mg/dL (75-110); POTASSIUM 4.7 mmol/L (3.6-5.0); TOTAL PROTEIN 5.9 g/dL (6.3-8.2)
[2020-09-22 04:12] LABS: APPEARANCE,URINE CLEAR; BILIRUBIN,URINE NEGATIVE (NEGATIVE); COLOR,URINE YELLOW; GLUCOSE, URINE NEGATIVE (NEGATIVE); KETONES,URINE NEGATIVE (NEGATIVE); LEUKOCYTE ESTERASE,URINE NEGATIVE (NEGATIVE); NITRITE,URINE NEGATIVE (NEGATIVE); PROTEIN,URINE NEGATIVE (NEGATIVE); UROBILINOGEN,URINE NEGATIVE mg/dL (<2.0)
[2020-09-22] MEDS ORDERED: NORMAL SALINE 500 ML IV ONE (04:22)
--- NOTE | 2020-09-22 05:06 | ER Document Report ---
ED General - General Chief Complaint: Flank Pain Stated Complaint: ABDOMINAL PAIN Time Seen by Provider: 09/22/20 03:22 Primary Care Provider: DALIA MOSELEY PA-C [Primary Care Provider] - Follow up as needed TRAVEL OUTSIDE OF THE [place] IN LAST 30 DAYS: No - HPI Context: This is a 80-year-old male who presents to the emergency department with a chief complaint of left flank pain. Patient states his symptoms started suddenly tonight when he went from a sitting to standing position. Patient states he has a history of sciatica but denies the pain being the same as his sciatic nerve pain. Patient denies abdominal pain, nausea, vomiting, diarrhea, constipation. Patient is diabetic. Patient describes the pain in his left flank as being sharp and sudden in onset and rates it as a 5 out of 5 when it initially came on. Patient states he started to rub his back in the area where was hurting and eventually the pain stopped. However he decided to come to the emergency depa rtment to get his kidneys "checked." Patient denies urinary symptoms such as dysuria, urinary frequency urinary hesitancy, sensation of difficulty emptying bladder. This MD reviewed the results of the patient's lab work prior to going into the patient's room and noted that the patient's lipase is 1105. Again patient is denying any type of nausea vomiting and abdominal pain and states that his flank pain has resolved on its own. Looking back to the patient's record it turns out his lipase has been as high as 2749.8 back on December 27, 2018. However no CT scan of the abdomen done on that same date was to be found in the patient's records. Patient states he does not drink alcohol, does not smoke and does not use illicit drugs. Patient denies history of COVID-19 infection, denies loss of sense of taste or sense of smell, denies known exposure to COVID-19 positive persons or persons under investigation for COVID- 19. Patient denies fever, chills, chest pain, shortness of breath. Patient denies change in bowel or urinary habits. Associated symptoms: Other - See HPI Exacerbated by: Other - See HPI Relieved by: Other - See HPI - Related Data Allergies/Adverse Reactions: No Known Allergies Allergy (Verified 09/05/20 10:58) Past Medical History - General Information source: Patient - Social History Smoking Status: Never Smoker Frequency of alcohol use: None Drug Abuse: None Family History: Reviewed & Not Pertinent, Other Patient has homicidal ideation: No - Past Medical History Cardiac Medical History: Reports: Hx Hypercholesterolemia, Hx Hypertension Endocrine Medical History: Reports: Hx Diabetes Mellitus Type 2 Renal/ Medical History: Denies: Hx Peritoneal Dialysis Musculoskeletal Medical History: Reports Hx Arthritis Past Surgical History: Reports: Hx Abdominal Surgery - right inginual hernia repair, Hx Cholecystectomy - Immunizations Immunizations up to date: Yes Hx Diphtheria, Pertussis, Tetanus Vaccination: Yes Review of Systems - Review of Systems Constitutional: No symptoms reported EENT: No symptoms reported Cardiovascular: No symptoms reported Respiratory: No symptoms reported Gastrointestinal: No symptoms reported Genitourinary: Flank pain Male Genitourinary: No symptoms reported Musculoskeletal: No symptoms reported Skin: No symptoms reported Hematologic/Lymphatic: No symptoms reported Neurological/Psychological: No symptoms reported -: Yes All other systems reviewed and negative Physical Exam - Vital signs Vitals: Temp Pulse Resp BP Pulse Ox 97.7 F 68 22 H 199/74 H 98 09/22/20 02:43 09/22/20 02:43 09/22/20 02:43 09/22/20 02:43 09/22/20 02:43 - Notes Notes: CONSTITUTIONAL [Vital signs reviewed, Patient appears comfortable, Alert and oriented X 3, Normal stature.] HEAD [Atraumatic, Normocephalic.] EYES [Eyes are normal to inspection, No discharge from eyes, Extraocular muscles intact, Sclera are normal, Conjunctiva are normal.] ENT [External ears normal to inspection, Nose examination normal, Mouth normal to inspection.] NECK [Normal ROM, No jugular venous distention, No meningeal signs, ] RESPIRATORY CHEST [Chest is nontender, Breath sounds normal, No respiratory distress.] CARDIOVASCULAR [RRR, No murmurs, Normal S1 S2, No rub, No gallop.] ABDOMEN [Abdomen is nontender, No pulsatile masses, No other masses, Bowel sounds normal, No distension, No peritoneal signs, No hernias.] BACK [There is no CVA Tenderness, There is no tenderness to palpation, Normal inspection.] UPPER EXTREMITY [Inspection normal, No cyanosis, No clubbing, No edema, LOWER EXTREMITY [Inspection normal, No cyanosis, No clubbing, No edema, No calf tenderness, NEURO [No focal motor deficits, No focal sensory deficits, Speech normal.] SKIN [Skin is warm, Skin is dry, Skin is normal color.] PSYCHIATRIC [Normal affect. ] Course - Re-evaluation Re-evalutation: 09/22/20 06:19 CAT scan showed no evidence of pancreatitis, dissection, renal disease. Results of ED MSE discussed with patient. Given the patient does not drink alcohol, is status post cholecystectomy I suspect that his elevated lipase level may be related to medications that he is taking. I have instructed the patient to follow-up with his primary care provider and review his medications to see if there might be any medications he is on that her strongly associated with pancreatitis. All results of the ED MSE were discussed with patient. All questions were answered prior to discharge. Emergency signs and symptoms, reasons to return to the emergency department discussed with patient. - Vital Signs Vital signs: Temp Pulse Resp BP Pulse Ox 97.7 F 68 22 H 199/74 H 98 09/22/20 02:43 09/22/20 02:43 09/22/20 02:43 09/22/20 02:43 09/22/20 02:43 - Laboratory Result Diagrams: 09/22/20 03:05 09/22/20 03:05 Laboratory results interpreted by me: 09/22/20 09/22/20 09/22/20 03:05 03:05 03:30 RBC 4.02 L Hgb 11.8 L Hct 34.4 L RDW 14.3 H Sodium 122.8 L Chloride 91 L BUN 22 H Glucose 178 H Total Protein 5.9 L Lipase 1105.1 H Urine Ascorbic Acid 40 H - Diagnostic Test Radiology reviewed: Reports reviewed Discharge - Discharge Clinical Impression: Serum lipase elevation, Acute left flank pain Condition: Stable Disposition: HOME, SELF-CARE Additional Instructions: Return to the Emergency Department without delay if any worse. Be certain to follow-up with your primary care provider to discuss your elevated lipase level which was 1105 today. You and your healthcare provider should review the prescription medications are on to be certain that none of them are strongly associated with causing pancreas irritation. HOME CARE INSTRUCTIONS & INFORMATION: Thank you for choosing us for your medical needs. We hope you're satisfied with the care you received. After you leave, you must properly care for your problem and, at the same time, observe its progress. Any condition can change. Some illnesses can change rapidly over hours or days. If your condition worsens, return to the Emergency Department or see your physician promptly. ABOUT YOUR X-RAYS AND EKG'S: If you had an EKG or X-rays taken, they have been read by the Emergency Physician. The X-rays and EKG's will also be read by a Radiologist or Roundhouse Worker within 24 hours. If discrepancies are noted, you will be notified by telephone. Please be certain the ED has a correct telephone number & address where you can be reached. Also, realize that some fractures or abnormalities do not show up on initial X-rays. If your symptoms continue, see your physician. ABOUT YOUR LABORATORY TEST: If you had laboratory tests, the results have been reviewed by the Emergency Physician. Some test results (for example cultures) may not be available for several days. You will be contacted if any test result shows you need additional treatment. Please be certain the ED has a correct telephone number and address where you can be reached. ABOUT YOUR MEDICATIONS: You will receive instructions on how to take your medicine on the prescription label you receive. Additional information may be provided by the Pharmacy. If you have questions afterwards, call the ED for clarification or further instructions. Some prescribed medications may cause drowsiness. Do not perform tasks such as driving a car or operating machinery without consulting your Pharmacist. If you feel you need a refill of pain medication, your condition will need re-evaluation. Please do not call for a refill of any medication. ABOUT YOUR SIGNATURE: Signature of this document acknowledges to followin. Understanding that you received emergency treatment and that you may be released before al medical problems are known or treated. Please be certain the ED has a correct phone number & address where you can be reached. 2. Acknowledgement that you will arrange for follow-up care as recommended. 3. Authorization for the Emergency Physician to provide information to your follow-up Physician in order to maximize your care. AT ANY TIME, IF YOUR SYMPTOMS CHANGE SIGNIFICANTLY OR WORSEN OR YOU DEVELOP NEW SYMPTOMS, RETURN TO THE EMERGENCY DEPARTMENT IMMEDIATELY FOR RE-EVALUATION. OUR GOAL IS TO PROVIDE EXCELLENT MEDICAL CARE! WE HOPE THAT WE HAVE MET YOUR EXPECTATIONS DURING YOUR EMERGENCY DEPARTMENT VISIT AND THAT YOU FEEL YOU HAVE RECEIVED EXCELLENT CARE! Referrals: DALIA MOSELEY PA-C [Primary Care Provider] - Follow up as needed
--- NOTE | 2020-09-22 06:06 | RADIOLOGY REPORT (SQ) ---
EXAM: CT abdomen and pelvis with IV contrast CLINICAL DATA: 80 years Male left flank pain, elevated lipase TECHNICAL DATA: Axial CT imaging of the abdomen and pelvis was performed following the administration of intravenous contrast.. Oral contrast was not administered. Sagittal and coronal reconstructed images were then performed. The CT study is performed according to ALARA (as low as reasonably achievable) or ALARA/IMAGE GENTLY, with automatic adjustment of mA and/or kV according to patient size. Performed on: 09/22/2020 at 5:04 AM. Comparison: None FINDINGS: Lung bases: The lung bases are clear. There is minimal bibasilar atelectasis and/or fibrosis. Liver:The liver is normal in size and configuration. No focal hepatic abnormalities are identified. Liver attenuation is within normal limits. Spleen:The spleen is normal is size, configuration and attenuation. Gallbladder and bile duct: The gallbladder is surgically absent. There is no biliary ductal dilatation. Pancreas: The pancreas is grossly normal in size and configuration. Adrenal Glands: There is very slight nodularity of the adrenal glands bilaterally which may be due to small bilateral adrenal adenomas measuring approximately 1 cm in diameter. No follow-up imaging is recommended at this time. Kidneys:The kidneys are normal in size and configuration. There is no evidence of hydronephrosis. There is no evidence of nephrolithiasis. No definite solid or cystic renal mass lesions are identified. Stomach:The stomach is grossly normal. There is no definite hiatal hernia. Bowel:The bowel gas pattern is non specific and non obstructive. There are surgical clips in the left lower quadrant anteriorly. Appendix: The appendix is normal. Free air:There is no evidence of free air. Free fluid: There is no evidence of free fluid. Vasculature: The aorta is normal in caliber and contour. There are mild to moderate atherosclerotic calcifications along the abdominal aorta and major branch vessels. The inferior vena cava is grossly unremarkable. Lymphadenopathy: No pathologic lymphadenopathy is identified. Bladder: The bladder is well distended and smooth in contour. Reproductive: The prostate gland is grossly within normal limits. Bones: No acute osseous abnormalities are identified. Soft tissues: No focal soft tissue abnormalities are identified. IMPRESSION: 1. No evidence of acute intra-abdominal or intrapelvic pathology. 2. Remote cholecystectomy. 3. Very slight nodularity of the adrenal glands bilaterally which may be due to small adrenal adenomas measuring approximately 1 cm in diameter. No follow-up imaging is recommended at this time. 4. Remote postsurgical changes in the left lower quadrant anteriorly. 5. There are no definite findings on this examination to explain the patient's left flank pain.
[2020-09-22 06:41] VITALS: BP 155/67
== END 2020-09-22 06:41 | disposition home or self-care (01) ==
LOC: ER 02:37
DX: R79.89 Other specified abnormal findings of blood chemistry (principal); R10.9 Unspecified abdominal pain; E78.00 Pure hypercholesterolemia, unspecified; I10 Essential (primary) hypertension; E11.9 Type 2 diabetes mellitus without complications
CPT/HCPCS: 99285; 96360; 36415; 83690; 85025; 80053; 81001; 74177; J7040

== ENCOUNTER 2020-10-03 14:08 | Emergency (ER) | payer MEDICARE, BC ==
--- NOTE | 2020-10-03 14:20 | ER Document Report ---
ED Medical Screen (RME) - General Stated Complaint: FACE NUMBNESS Time Seen by Provider: 10/03/20 14:10 Primary Care Provider: DALIA MOSELEY PA-C [Primary Care Provider] - Follow up as needed Mode of Arrival: Ambulatory Information source: Patient Notes: Patient presents complaining of left anterior chest pain. Patient states pain radiates to the left side of neck and into the left side of the face. Patient also reports left upper back pain. Patient states he woke up and his clothes were completely drenched in sweat. Patient states that he has had facial numbness to bilateral sides of face off and on for 2 weeks. Patient points to left upper chest area where his pain is but states that he is concerned about possible stroke because of the pain in the chest area. Patient has underlying history of high blood pressure and diabetes. I have greeted and performed a rapid initial assessment of this patient. A comprehensive ED assessment and evaluation of the patient, analysis of test results and completion of the medical decision making process will be conducted by additional ED providers. TRAVEL OUTSIDE OF THE [place] IN LAST 30 DAYS: No - Related Data Allergies/Adverse Reactions: No Known Allergies Allergy (Verified 09/05/20 10:58) Past Medical History - Past Medical History Cardiac Medical History: Reports: Hx Hypercholesterolemia, Hx Hypertension Endocrine Medical History: Reports: Hx Diabetes Mellitus Type 2 Renal/ Medical History: Denies: Hx Peritoneal Dialysis Musculoskeltal Medical History: Reports Hx Arthritis Past Surgical History: Reports: Hx Abdominal Surgery - right inginual hernia repair, Hx Cholecystectomy - Immunizations Immunizations up to date: Yes Hx Diphtheria, Pertussis, Tetanus Vaccination: Yes Physical Exam - Vital signs Vitals: Temp Pulse Resp BP Pulse Ox 98.3 F 74 18 186/78 H 99 10/03/20 14:14 10/03/20 14:14 10/03/20 14:14 10/03/20 14:14 10/03/20 14:14 - Respiratory Respiratory status: No respiratory distress Breath sounds: Normal - Cardiovascular Rhythm: Regular Heart sounds: S1 appreciated, S2 appreciated - Neurological Neuro grossly intact: Yes [place] Coma Scale Eye Opening: Spontaneous [place] Coma Scale Verbal: Oriented Be Coma Scale Motor: Obeys Commands Be Coma Scale Total: 15 Course - Vital Signs Vital signs: Temp Pulse Resp BP Pulse Ox 98.3 F 74 18 186/78 H 99 10/03/20 14:14 10/03/20 14:14 10/03/20 14:14 10/03/20 14:14 10/03/20 14:14 Doctor's Discharge - Discharge Referrals: DALIA MOSELEY PA-C [Primary Care Provider] - Follow up as needed
[2020-10-03 15:01] LABS: INTERNATIONAL RATION (INR) 0.96
[2020-10-03 15:02] LABS: PARTIAL THROMBOPLASTIN TIME 31.6 SEC (23.5-35.8)
--- NOTE | 2020-10-03 15:08 | RADIOLOGY REPORT (SQ) ---
EXAM DESCRIPTION: CT HEAD WITHOUT IMAGES COMPLETED DATE/TIME: 10/03/2020 2:59 pm REASON FOR STUDY: facial pain, hx intermittent facial numbness COMPARISON: CT brain 12/20/2018, 08/16/2020 TECHNIQUE: Axial images acquired through the brain without intravenous contrast. Images reviewed wi th bone, brain and subdural windows. Additional sagittal and coronal reconstructions were generated. Images stored on PACS. All CT scanners at this facility use dose modulation, iterative reconstruction, and/or weight based d osing when appropriate to reduce radiation dose to as low as reasonably achievable (ALARA). [facility]: Dose Right [facility]: CareDose [facility]: Dose Right [facility]: Teradose 4D [facility]: Smart 99tests RADIATION DOSE: CT Rad equipment meets quality standard of care and radiation dose reduction techniq ues were employed. CTDIvol: 53.2 mGy. DLP: 1070 mGy-cm. mGy. LIMITATIONS: None. FINDINGS: VENTRICLES: Normal size and contour. CEREBRUM: No masses. No hemorrhage. No midline shift. No evidence for acute infarction. Normal gra y/white matter differentiation. No areas of low density in the white matter. CEREBELLUM: No masses. No hemorrhage. No alteration of density. No evidence for acute infarction. EXTRAAXIAL SPACES: No fluid collections. No masses. ORBITS AND GLOBE: No intra- or extraconal masses. Post bilateral cataract surgery CALVARIUM: No fracture. PARANASAL SINUSES: Mucous membrane thickening in the left sphenoid sinus, bilateral posterior ethmoid air cells SOFT TISSUES: No mass or hematoma. OTHER: No other significant finding. IMPRESSION: No acute intracranial changes EVIDENCE OF ACUTE STROKE: NO. COMMENT: Quality ID # [id number]: Final reports with documentation of one or more dose reduction techniques (e.g., Automated exposure control, adjustment of the mA and/or kV according to patient size, use of iterative reconstruction technique) TECHNICAL DOCUMENTATION: JOB ID: [id number] 2010 [employer]- All Rights Reserved Reading location - IP/workstation name: [email or web address]
--- NOTE | 2020-10-03 15:09 | RADIOLOGY REPORT (SQ) ---
Chest radiograph single view EXAM DESCRIPTION: CHEST SINGLE VIEW IMAGES COMPLETED DATE/TIME: 10/03/2020 1:46 pm REASON FOR STUDY: cp. COMPARISON: 09/05/2020 EXAM PARAMETERS: NUMBER OF VIEWS: One view. TECHNIQUE: Single frontal radiographic view of the chest acquired. RADIATION DOSE: NA LIMITATIONS: None. FINDINGS: LUNGS AND PLEURA: No opacities, masses or pneumothorax. No pleural effusion. MEDIASTINUM AND HILAR STRUCTURES: No masses. Contour normal. HEART AND VASCULAR STRUCTURES: Heart normal in size. Normal vasculature. BONES: No acute findings. HARDWARE: None in the chest. OTHER: No other significant finding. IMPRESSION: NO ACUTE RADIOGRAPHIC FINDING IN THE CHEST. TECHNICAL DOCUMENTATION: JOB ID: [id number] 2010 [employer]- All Rights Reserved Reading location - IP/workstation name: [email or web address]
[2020-10-03 15:10] LABS: ABSOLUTE BASOPHILS # (AUTO) 0.1 10^3/uL (0.0-0.2); ABSOLUTE LYMPHOCYTES (AUTO) 1.4 10^3/uL (0.5-4.7); ABSOLUTE MONOCYTES (AUTO) 0.5 10^3/uL (0.1-1.4); ABSOLUTE NEUT (AUTO) 5.6 10^3/uL (1.7-8.2); BASOPHILS % (AUTO) 0.9 % (0-2); EOSINOPHILS % (AUTO) 0.6 % (0-6); HEMATOCRIT 39.1 % (37.9-51.0); LYMPHOCYTES % (AUTO) 18.5 % (13-45); MEAN CORPUSCULAR HEMOGLOBIN 28.6 pg (27.0-33.4); MEAN CORPUSCULAR HGB CONC 33.2 g/dL (32.0-36.0); MEAN CORPUSCULAR VOLUME 86 fl (80-97); MONOCYTES % (AUTO) 6.8 % (3-13); PLATELET COUNT 180 10^3/uL (150-450); RED BLOOD COUNT 4.54 10^6/uL (4.35-5.55); RED CELL DISTRIBUTION WIDTH 14.1 % (11.5-14.0); SEGMENTED NEUTROPHILS % (AUTO) 73.2 % (42-78); TOTAL CELLS COUNTED % (AUTO) 100 %; WHITE BLOOD COUNT 7.7 10^3/uL (4.0-10.5)
[2020-10-03 15:11] LABS: ALBUMIN 4.5 g/dL (3.5-5.0); ALKALINE PHOSPHATASE 82 U/L (38-126); ANION GAP 11 (5-19); ASPARTATE AMINO TRANSFERASE 22 U/L (17-59); BILIRUBIN,TOTAL 0.9 mg/dL (0.2-1.3); BLOOD UREA NITROGEN 23 mg/dL (7-20); CALCIUM 9.7 mg/dL (8.4-10.2); CARBON DIOXIDE 24 mmol/L (22-30); CHLORIDE 93 mmol/L (98-107); GLUCOSE 169 mg/dL (75-110); POTASSIUM 4.7 mmol/L (3.6-5.0); TOTAL PROTEIN 7.2 g/dL (6.3-8.2)
--- NOTE | 2020-10-03 18:08 | EKG REPORT ---
SEVERITY:- ABNORMAL ECG - SINUS RHYTHM LEFT ANTERIOR FASCICULAR BLOCK LOW VOLTAGE IN FRONTAL LEADS : Confirmed by: Jersey Shepherd MD 03-Oct-2020 18:07:15
--- NOTE | 2020-10-03 19:23 | ER Document Report ---
ED General - General Chief Complaint: Chest Pain Stated Complaint: FACE NUMBNESS Time Seen by Provider: 10/03/20 14:10 Primary Care Provider: DALIA MOSELEY PA-C [Primary Care Provider] - Follow up as needed Mode of Arrival: Ambulatory Notes: 80-year-old male with diabetes complicated by peripheral neuropathy, hypertension presents with several weeks of constant pain in upper left chest. Patient says he feels a point in his chest where there is a "swelling "where there is pain that started at rest and has been constant for several weeks and feels like sometimes it is radiating to his upper back between his shoulder blades without associated symptoms, aggravating or alleviating factors, or prior episodes. Patient says he has had televisit with PCP who put him on antibiotics for unknown indication which has not resolved his symptoms. Patient has seen ENT for this complaint and has had upper fiberoptic evaluation which did not show any findings. Patient also complains that intermittently his bilateral hands and face and legs have tingling and numbness, but that this has been going on for years and that he is following up with his "nephropathy specialist". Patient denies any exertional chest pain, pleuritic chest pain, cardiac history, abdominal pain, trauma, shortness of breath, cough, fever, throat pain, headache, change in vision/speech/gait, weakness, vertigo, lightheadedness, syncope, lower extremity edema, DVT/PE/hypercoagulability history TRAVEL OUTSIDE OF THE [place] IN LAST 30 DAYS: No - Related Data Allergies/Adverse Reactions: No Known Allergies Allergy (Verified 09/05/20 10:58) Past Medical History - General Information source: Patient, [facility] Records - Social History Smoking Status: Unknown if Ever Smoked Family History: Reviewed & Not Pertinent, Other Patient has homicidal ideation: No - Past Medical History Cardiac Medical History: Reports: Hx Hypercholesterolemia, Hx Hypertension Endocrine Medical History: Reports: Hx Diabetes Mellitus Type 2 Renal/ Medical History: Denies: Hx Peritoneal Dialysis Musculoskeletal Medical History: Reports Hx Arthritis Past Surgical History: Reports: Hx Abdominal Surgery - right inginual hernia repair, Hx Cholecystectomy - Immunizations Immunizations up to date: Yes Hx Diphtheria, Pertussis, Tetanus Vaccination: Yes Review of Systems - Review of Systems Notes: REVIEW OF SYSTEMS: CONSTITUTIONAL : Denies fever, chills, or sweats. EENT: Denies recent cold/sinus symptoms, denies throat pain CARDIOVASCULAR: +chest pain, -SHELLIE RESPIRATORY: Denies cough, denies shortness of breath. GASTROINTESTINAL: Denies abdominal pain, nausea/vomiting. GENITOURINARY: Denies difficulty urinating, painful urination. MUSCULOSKELETAL: Denies neck pain, back pain. SKIN: Denies rash or skin lesions. HEMATOLOGIC : Denies easy bruising or bleeding. LYMPHATIC: Denies swollen, enlarged glands. NEUROLOGICAL: Denies headache, denies change in gait. PSYCHIATRIC: Denies anxiety or stress or depression. Physical Exam - Vital signs Vitals: Temp Pulse Resp BP Pulse Ox 98.3 F 74 18 186/78 H 99 10/03/20 14:14 10/03/20 14:14 10/03/20 14:14 10/03/20 14:14 10/03/20 14:14 - Notes Notes: PHYSICAL EXAMINATION: GENERAL: Well-appearing, well-nourished, jovial, talkative elderly man appearing younger than stated age without any visible signs of discomfort and in no acute distress. HEAD: Atraumatic, normocephalic. EYES: Pupils equal round and appropriate constriction, sclera anicteric, conjunctiva are normal. ENT: nares patent, moist mucous membranes, normal oropharynx NECK/back: Normal range of motion, supple without lymphadenopathy, no masses, no bruits, no spinal tenderness or deformity LUNGS: Breath sounds clear to auscultation bilaterally and equal. No wheezes rales or rhonchi. Normal respiratory rate and effort HEART/chest: Regular rate and rhythm without murmurs, rubs, or gallops. Bilateral radial pulses 2+ and symmetric. Reports focal pain at point above me dial left clavicle which has normal inspection, no masses, no tenderness ABDOMEN: Soft, nontender, no guarding, no masses, no CVAT EXTREMITIES: Normal range of motion, no pitting or edema. No cyanosis. NEUROLOGICAL: Awake, alert, conversing appropriately, moves all extremities spontaneously. PSYCH: Normal mood, normal affect. SKIN: Warm, Dry, normal turgor, no rashes or lesions noted. Course - Re-evaluation Re-evalutation: 10/03/20 19:42 Patient with constant pain in upper left chest radiating to back that has had s everal weeks duration without associated symptoms. Patient extremely well- appearing, no findings on exam, very focal pain. Given patient's age and hypertension history and pain radiating to back obtain CTA aortic dissection protocol with instruction to include neck as aortic dissection protocol usually terminates at the upper aortic arch and pain above that location. No signs of ACS causing pain or PE, given patient's age repeated troponin, but no indication to admit for ACS rule out given extremely low suspicion. Pain also inconsistent with PE, will evaluate proximal pulmonary arteries on CTA dissection protocol, but able to rule out clinically. Rule out pathologic rib/clavicular fracture, mass, dissection. If no findings on CT will discharge with PCP follow-up and return precautions. - Vital Signs Vital signs: Temp Pulse Resp BP Pulse Ox 98.3 F 74 16 165/68 H 97 10/03/20 14:14 10/03/20 14:14 10/03/20 14:38 10/03/20 14:38 10/03/20 14:42 - Laboratory Result Diagrams: 10/03/20 14:33 10/03/20 14:33 Laboratory results interpreted by me: 10/03/20 10/03/20 14:33 14:33 Hgb 13.0 L RDW 14.1 H Sodium 128.1 L Chloride 93 L BUN 23 H Glucose 169 H - EKG Interpretation by Me Additional EKG results interpreted by me: 10/03/20 19:45 Sinus rhythm, left ventricular fascicular block, no significant ST elevation or depression, no significant T wave abnormalities Discharge - Discharge Clinical Impression: Chest pain Qualifiers: Chest pain type: unspecified Qualified Code(s): R07.9 - Chest pain, unspecified Disposition: HOME, SELF-CARE Additional Instructions: Chest Pain of Unclear Cause The exact cause of your chest pain isn't clear. Fortunately, there is no evidence of a dangerous medical condition. Further testing may be required to find the source of the pain. Most often, we find that this pain is coming from the chest wall -- the muscles or rib joints in the chest. But chest pain can come from the lung and lung lining, the esophagus, the heart valves or heart lining, and even the stomach or gallbladder. Follow-up with your primary doctor within 1 week. If you have any worsening pain, shortness of breath, pain when you do activities, dizziness, fainting, fever, or any other worsening or alarming symptoms return to the emergency department immediately. Your CAT scan showed a nodule in your thyroid which could be something benign but could also be something dangerous such as cancer. Is important that you follow-up with your primary doctor to have this further investigated. Bring your results with you when you go to follow-up with your primary doctor. You had some narrowing of your right carotid artery on your CT scan. You should follow-up with your primary doctor about this also. If you have any weakness, numbness, change in your vision, how you speak, how you walk, room spinning sensation, confusion, or any other worsening or alarming symptoms return to the emergency department immediately. Referrals: DALIA MOSELEY PA-C [Primary Care Provider] - Follow up in 1 week
--- NOTE | 2020-10-03 20:06 | RADIOLOGY REPORT (SQ) ---
EXAM DESCRIPTION: CTA CHEST; CT SOFT TISSUE NECK WITH; CTA ABDOMEN/PELVIS W WO IMAGES COMPLETED DATE/TIME: 10/03/2020 6:36 pm; 10/03/2020 6:37 pm REASON FOR STUDY: upper left CP/clavicle radiating to back htn 80M. Upper left chest pain and clavi bernie pain radiating to the back. Hypertension P COMPARISON: Chest radiograph same date. CONTRAST TYPE AND DOSE: contrast/concentration: Isovue 350.00 mmol/ml; Total Contrast Delivered: 100 .0 ml; Total Saline Delivered: 90.0 ml RENAL FUNCTION: GFR > 60. TECHNIQUE: CT scan of the soft tissues of the neck performed with IV contrast. Coronal and sagittal reformatted images were also submitted for review. CT scan of the chest performed using helical scanning technique with dynamic intravenous contrast inj ection. Images reviewed with lung, soft tissue and bone windows. Reconstructed coronal and sagittal MPR images reviewed. All images stored on PACS. CT scan of the abdomen and pelvis performed with intravenous and oral contrast using helical scanning technique with dynamic intravenous contrast injection. Images reviewed with lung, soft tissue and b one windows. Reconstructed coronal and sagittal MPR images reviewed. Delayed images for evaluation of the urinary system also acquired and evaluated. All images stored on PACS. All CT scanners at this facility use dose modulation, iterative reconstruction, and/or weight based d osing when appropriate to reduce radiation dose to as low as reasonably achievable (ALARA). [facility]: Dose Right [facility]: CareDose [facility]: Dose Right [facility]: Teradose 4D [facility]: [employer] RADIATION DOSE: CT Rad equipment meets quality standard of care and radiation dose reduction techniq ues were employed. CTDIvol: 3.2 - 44.6 mGy. DLP: 2724 mGy-cm. . LIMITATIONS: None. FINDINGS: SOFT TISSUE NECK: Tongue base is symmetric. No cervical or supraclavicular adenopathy. Paranasal sinuses are clear. Visualized intracranial contents unremarkable. There is moderate atherosclerotic plaque at the right carotid bulb with probably greater than 50% stenosis of the right internal carotid artery. Left car otid artery appears patent. CHEST: AXILLAE: No adenopathy. CHEST WALL: No masses. No subcutaneous air. LUNGS: Trachea has normal caliber and appearance. No bronchial wall thickening or bronchiectasis. M inimal basilar atelectasis. No focal consolidation. No suspicious nodules. PLEURA: No effusion or pneumothorax. THYROID: Heterogeneous 1.5 cm right thyroid nodule indeterminate. HILAR AND MEDIASTINAL STRUCTURES: No identified masses or abnormal nodes. AORTA AND GREAT VESSELS: No aneurysm. No dissection. PULMONARY ARTERIES: No identified pulmonary emboli. Study not optimized for the pulmonary arteries. HEART: Normal size. No pericardial effusion. There is coronary artery atherosclerosis. HARDWARE AND LIFELINES: None. BONES: No significant finding. OTHER: No other significant finding. ABDOMEN AND PELVIS: LIVER: Liver has normal size and contour. No focal hepatic mass. Hepatic and portal veins are paten t. No biliary ductal dilation. SPLEEN: Normal size. No focal lesions. PANCREAS: No masses. No significant calcifications. No adjacent inflammation or peripancreatic flui d collections. Pancreatic duct not dilated. GALLBLADDER: Surgically absent. ADRENAL GLANDS: No significant masses or asymmetry. RIGHT KIDNEY AND URETER: No solid masses. No significant calcifications. No hydronephrosis or hyd roureter. LEFT KIDNEY AND URETER: No solid masses. No significant calcifications. No hydronephrosis or hydr oureter. AORTA AND VESSELS: No aneurysm. No dissection. Renal arteries, SMA, celiac without stenosis. RETROPERITONEUM: No retroperitoneal adenopathy, hemorrhage or masses. LARGE AND SMALL BOWEL: No dilatation. No masses. No wall thickening. APPENDIX: Normal. ABDOMINAL WALL: No hernia or masses. PERITONEAL CAVITY: No free air. No free fluid. No peritoneal implants or masses. PELVIS: No mass or free fluid. Normal bladder. BONES: Spondylosis and degenerative disc disease in the thoracolumbar spine. No suspicious bone lesi ons. Vertebral body hemangioma at L1. OTHER: No other significant finding. IMPRESSION: 1. No thoracic or abdominal aortic dissection, aneurysm, stenosis or occlusion. 2. No pulmonary embolism. No acute pulmonary disease. 3. There is coronary artery atherosclerosis. 4. 1.5 cm right thyroid nodule is indeterminate. Follow-up with nonemergent thyroid ultrasound recom mended. 5. Probably greater than 50% stenosis right internal carotid artery. Correlation with carotid artery duplex ultrasound is recommended. 6. No acute abnormality in the abdomen or pelvis. TECHNICAL DOCUMENTATION: JOB ID: [id number] Quality ID # [id number]: Final reports with documentation of one or more dose reduction techniques (e.g., Au tomated exposure control, adjustment of the mA and/or kV according to patient size, use of iterative reconstruction technique) 2010 [employer]- All Rights Reserved Reading location - IP/workstation name: [email or web address]
[2020-10-03 21:34] VITALS: BP 119/61
== END 2020-10-03 21:34 | disposition home or self-care (01) ==
LOC: ER 14:08
DX: R07.9 Chest pain, unspecified (principal); R20.0 Anesthesia of skin; M54.2 Cervicalgia; M54.6 Pain in thoracic spine; E78.00 Pure hypercholesterolemia, unspecified; I10 Essential (primary) hypertension; E11.9 Type 2 diabetes mellitus without complications
CPT/HCPCS: 36415; 70450; 70491; 71045; 71275; 74174; 80053; 83735; 84484; 85025; 85610; 85730; 93005; 93010; 99285

== ENCOUNTER 2020-10-26 05:54 | Emergency (ER) | payer MEDICARE, BC ==
--- NOTE | 2020-10-26 11:00 | ER Document Report ---
Entered by BJ ROSEN SCRIBE 10/26/20 1031 Acting as scribe for:ISAURA BILLS MD ED General - General Chief Complaint: Foot Pain Stated Complaint: FOOT PAIN Time Seen by Provider: 10/26/20 10:21 Primary Care Provider: DALIA MOSELEY PA-C [Primary Care Provider] - Follow up as needed Information source: Patient Notes: This 80-year-old male patient presents to the emergency department today with complaints of bilateral foot pain for the last 3 months. Patient states the pain comes and goes. He reports that it seems to be worse immediately after he wakes up in the morning. He does not have to stand up on his feet for the pain to begin. He mentions that someone has had similar symptoms and they are put on gabapentin. He reports that he has an appointment with a "specialist" in [place] for this on Wednesday. TRAVEL OUTSIDE OF THE [place] IN LAST 30 DAYS: No - Related Data Allergies/Adverse Reactions: No Known Allergies Allergy (Verified 10/26/20 06:20) Past Medical History - General Information source: Patient - Social History Smoking Status: Never Smoker Cigarette use (# per day): No Frequency of alcohol use: None Drug Abuse: None Family History: Reviewed & Not Pertinent, Other Patient has homicidal ideation: No - Past Medical History Cardiac Medical History: Reports: Hx Hypercholesterolemia, Hx Hypertension Endocrine Medical History: Reports: Hx Diabetes Mellitus Type 2 Musculoskeletal Medical History: Reports Hx Arthritis Past Surgical History: Reports: Hx Abdominal Surgery - right inginual hernia repair, Hx Cholecystectomy - Immunizations Immunizations up to date: Yes Hx Diphtheria, Pertussis, Tetanus Vaccination: Yes Review of Systems - Review of Systems Constitutional: No symptoms reported EENT: No symptoms reported Cardiovascular: No symptoms reported Respiratory: No symptoms reported Gastrointestinal: No symptoms reported Genitourinary: No symptoms reported Male Genitourinary: No symptoms reported Musculoskeletal: See HPI, Other - pain in feet Skin: No symptoms reported Hematologic/Lymphatic: No symptoms reported Neurological/Psychological: No symptoms reported -: Yes All other systems reviewed and negative Physical Exam - Vital signs Vitals: Temp Pulse Resp BP Pulse Ox 97.4 F 72 17 162/71 H 99 10/26/20 06:03 10/26/20 06:03 10/26/20 06:03 10/26/20 06:03 10/26/20 06:03 - Notes Notes: Physical Exam: General: Alert, appears well. HEENT: Normocephalic. Atraumatic. PERRL. Extraocular movements intact. Oropharynx clear. Neck: Supple. Non-tender. Respiratory: No respiratory distress. Clear and equal breath sounds bilaterally. Cardiovascular: Regular rate and rhythm. Abdominal: Normal Inspection. Non-tender. No distension. Normal Bowel Sounds. Back: No gross abnormalities. Extremities: Moves all four extremities. Upper extremities: Normal inspection. Normal ROM. Lower extremities: Normal inspection. Normal ROM. No swelling, tenderness to palpation, or breaks in the skin of the feet. Neurological: Normal cognition. AAOx4. Normal speech. Psychological: Normal affect. Normal Mood. Skin: Warm. Dry. Normal color. Course - Vital Signs Vital signs: Temp Pulse Resp BP Pulse Ox 98.9 F 79 17 159/69 H 98 10/26/20 11:54 10/26/20 11:49 10/26/20 11:49 10/26/20 11:49 10/26/20 11:49 - Laboratory Results Critical Laboratory Results Reviewed: No Critical Results - Radiology Results Critical Radiology Results Reviewed: No Critical Results Discharge - Discharge Clinical Impression: Diabetic peripheral neuropathy Condition: Stable Disposition: HOME, SELF-CARE Additional Instructions: Neuropathy Your symptoms are due to neuropathy. Neuropathy is nerve damage. There are many causes, including diabetes, immune disease, alcohol, blood vessel disease, and vitamin deficiency. The usual symptoms are pain and numbness. Neuropathy can occur anywhere, but it's most likely in the "longest" nerves. That's why the feet are most often affected. Sometimes the nerve damage can heal. But if the symptoms have lasted more than a few months, the damage is permanent. To avoid further damage, treat your underlying health problems carefully. If you have diabetes, keep the blood sugar as normal as possible. Avoid alcohol. Treat high blood pressure and high cholesterol. Treating chronic pain can be a problem. Obviously, you don't want to become addicted to pain medicine. Work closely with your doctor on pain management. Your options include antiinflammatory medicine, anti seizure medicine, antidepressants, and pain clinic management. Contact the doctor if there is a significant change. The symptoms you describe are most likely due to diabetic peripheral neuropathy. The feet are usually the first place involved. Keep your appointment on Wednesday for evaluation and management of your neuropathy. It is very important you keep your sugars well controlled, and you inspect the bottom of your feet every day. RETURN TO THE EMERGENCY ROOM IF ANY NEW OR WORSENING SYMPTOMS. Referrals: DALIA MOSELEY PA-C [Primary Care Provider] - Follow up as needed I personally performed the services described in the documentation, reviewed and edited the documentation which was dictated to the scribe in my presence, and it accurately records my words and actions.
[2020-10-26 11:51] VITALS: BP 159/69
== END 2020-10-26 11:54 | disposition home or self-care (01) ==
LOC: ER 05:54
DX: E11.42 Type 2 diabetes mellitus with diabetic polyneuropathy (principal); M79.671 Pain in right foot; M79.672 Pain in left foot; I10 Essential (primary) hypertension
CPT/HCPCS: 99282

== ENCOUNTER 2020-11-23 17:43 | Emergency (ER) | payer MEDICARE, BC ==
[2020-11-23 18:13] VITALS: BP 172/68
--- NOTE | 2020-11-23 18:35 | ER Document Report ---
ED Medical Screen (RME) - General Chief Complaint: Blood Pressure Problem Stated Complaint: FREQUENT URINATION Time Seen by Provider: 11/23/20 18:29 Primary Care Provider: DALIA MOSELEY PA-C [Primary Care Provider] - Follow up as needed Notes: HPI: 80-year-old male presenting for evaluation of high blood pressure. Patient has history of high blood pressure did take his medications today. Normally follows at [facility]. Patient states he does have lab work checked every few months. He noted significantly increased urination while his blood pressure was elevated he went to one of the local stores to have it checked and became concerned when it was very high there. No chest pain no shortness of breath. No abdominal pain. No fever no recent illness. Patient reports that his blood pressure here was much better than what he saw at the store. PHYSICAL EXAMINATION: Lung sounds are clear to auscultation regular rate and rhythm no tenderness on palpation of the abdomen. I have greeted and performed a rapid initial assessment of this patient. A comprehensive ED assessment and evaluation of the patient, analysis of test results and completion of medical decision making process will be conducted by an additional ED providers. Please note that clinical decision making for this patient was made during the 2019 pandemic of novel coronavirus which caused a significant strain on the healthcare system including at this particular facility. Criteria for admission discharge and level of care decisions as well as treatment decisions have necessarily changed TRAVEL OUTSIDE OF THE [place] IN LAST 30 DAYS: No - Related Data Allergies/Adverse Reactions: No Known Allergies Allergy (Verified 11/23/20 18:27) Home Medications: patient states he is unsure of what medications he takes Past Medical History - Social History Chew tobacco use (# tins/day): No Frequency of alcohol use: None Drug Abuse: None - Past Medical History Cardiac Medical History: Reports: Hx Hypercholesterolemia, Hx Hypertension Endocrine Medical History: Reports: Hx Diabetes Mellitus Type 2 Renal/ Medical History: Denies: Hx Peritoneal Dialysis Musculoskeltal Medical History: Reports Hx Arthritis Past Surgical History: Reports: Hx Abdominal Surgery - right inginual hernia repair, Hx Cholecystectomy - Immunizations Immunizations up to date: Yes Hx Diphtheria, Pertussis, Tetanus Vaccination: Yes Physical Exam - Vital signs Vitals: Temp Pulse Resp BP Pulse Ox 98.1 F 67 20 172/68 H 97 11/23/20 18:12 11/23/20 18:12 11/23/20 18:12 11/23/20 18:12 11/23/20 18:12 Course - Vital Signs Vital signs: Temp Pulse Resp BP Pulse Ox 98.1 F 67 20 172/68 H 97 11/23/20 18:12 11/23/20 18:12 11/23/20 18:12 11/23/20 18:12 11/23/20 18:12 Doctor's Discharge - Discharge Referrals: DALIA MOSELEY PA-C [Primary Care Provider] - Follow up as needed
[2020-11-23 18:58] LABS: ABSOLUTE BASOPHILS # (AUTO) 0.1 10^3/uL (0.0-0.2); ABSOLUTE EOSINOPHILS # (AUTO) 0.1 10^3/uL (0.0-0.6); ABSOLUTE MONOCYTES (AUTO) 0.8 10^3/uL (0.1-1.4); BASOPHILS % (AUTO) 1.4 % (0-2); EOSINOPHILS % (AUTO) 1.5 % (0-6); HEMATOCRIT 37.3 % (37.9-51.0); HEMOGLOBIN 12.4 g/dL (13.5-17.0); LYMPHOCYTES % (AUTO) 24.3 % (13-45); MEAN CORPUSCULAR HEMOGLOBIN 29.1 pg (27.0-33.4); MEAN CORPUSCULAR HGB CONC 33.3 g/dL (32.0-36.0); MEAN CORPUSCULAR VOLUME 87 fl (80-97); MONOCYTES % (AUTO) 10.5 % (3-13); PLATELET COUNT 173 10^3/uL (150-450); RED BLOOD COUNT 4.27 10^6/uL (4.35-5.55); RED CELL DISTRIBUTION WIDTH 14.5 % (11.5-14.0); SEGMENTED NEUTROPHILS % (AUTO) 62.3 % (42-78); TOTAL CELLS COUNTED % (AUTO) 100 %; WHITE BLOOD COUNT 8.1 10^3/uL (4.0-10.5)
[2020-11-23 19:00] LABS: APPEARANCE,URINE CLEAR; BILIRUBIN,URINE NEGATIVE (NEGATIVE); COLOR,URINE STRAW; GLUCOSE, URINE NEGATIVE (NEGATIVE); KETONES,URINE NEGATIVE (NEGATIVE); LEUKOCYTE ESTERASE,URINE NEGATIVE (NEGATIVE); NITRITE,URINE NEGATIVE (NEGATIVE); PROTEIN,URINE NEGATIVE (NEGATIVE); URINE SPECIFIC GRAVITY 1.006; UROBILINOGEN,URINE NEGATIVE mg/dL (<2.0)
[2020-11-23 19:11] LABS: ALBUMIN 3.8 g/dL (3.5-5.0); ALKALINE PHOSPHATASE 77 U/L (38-126); ANION GAP 7 (5-19); ASPARTATE AMINO TRANSFERASE 17 U/L (17-59); BILIRUBIN,DIRECT 0.1 mg/dL (0.0-0.4); BILIRUBIN,TOTAL 0.5 mg/dL (0.2-1.3); BLOOD UREA NITROGEN 17 mg/dL (7-20); CALCIUM 9.5 mg/dL (8.4-10.2); CARBON DIOXIDE 30 mmol/L (22-30); CHLORIDE 99 mmol/L (98-107); GLUCOSE 117 mg/dL (75-110); POTASSIUM 4.8 mmol/L (3.6-5.0); TOTAL PROTEIN 6.4 g/dL (6.3-8.2)
--- NOTE | 2020-11-23 20:39 | ER Document Report ---
ED General - General Chief Complaint: Blood Pressure Problem Stated Complaint: FREQUENT URINATION Time Seen by Provider: 11/23/20 18:29 Primary Care Provider: DALIA MOSELEY PA-C [Primary Care Provider] - 11/25/20 Notes: Patient is a 80 year old male that comes emergency department for chief complaint of concerns about elevated blood pressure readings. Patient states that he has recently been changed to a new blood pressure medication, he is now on lisinopril 20 mg/HCTZ 12.5 mg combination. He states he was urinating frequently for short period earlier today, he went to the drugstore to obtain strips to check his blood sugar, this was unremarkable, he states he checked his blood pressure while he was there and it was "very high". He cannot recall the number. He states he became concerned and came in for evaluation. He denies headache, chest pain, current urinary symptoms, abdominal pain, nausea, vomitin g, fever, or any other complaints at this time. Past medical history also includes hyperlipidemia, type 2 diabetes, BPH. He does follow with a local primary care provider and states he already has 3 appointments with his primary care and to referrals for "allergy and throat symptoms". Patient denies any current complaints. TRAVEL OUTSIDE OF THE [place] IN LAST 30 DAYS: No - Related Data Allergies/Adverse Reactions: No Known Allergies Allergy (Verified 11/23/20 18:27) Home Medications: patient states he is unsure of what medications he takes Past Medical History - General Information source: Patient - Social History Smoking Status: Never Smoker Chew tobacco use (# tins/day): No Frequency of alcohol use: None Drug Abuse: None Lives with: Alone Family History: Reviewed & Not Pertinent, Other - Past Medical History Cardiac Medical History: Reports: Hx Hypercholesterolemia, Hx Hypertension Endocrine Medical History: Reports: Hx Diabetes Mellitus Type 2 Renal/ Medical History: Denies: Hx Peritoneal Dialysis Musculoskeletal Medical History: Reports Hx Arthritis Past Surgical History: Reports: Hx Abdominal Surgery - right inginual hernia repair, Hx Cholecystectomy - Immunizations Immunizations up to date: Yes Hx Diphtheria, Pertussis, Tetanus Vaccination: Yes Review of Systems - Review of Systems Constitutional: No symptoms reported EENT: No symptoms reported Cardiovascular: No symptoms reported Respiratory: No symptoms reported Gastrointestinal: No symptoms reported Genitourinary: See HPI Male Genitourinary: No symptoms reported Musculoskeletal: No symptoms reported Skin: No symptoms reported Hematologic/Lymphatic: No symptoms reported Neurological/Psychological: No symptoms reported Physical Exam - Vital signs Vitals: Temp Pulse Resp BP Pulse Ox 98.1 F 67 20 172/68 H 97 11/23/20 18:12 11/23/20 18:12 11/23/20 18:12 11/23/20 18:12 11/23/20 18:12 - Notes Notes: GENERAL: Alert, interacts well. No acute distress. HEAD: Normocephalic, atraumatic. EYES: Pupils equal, round, and reactive to light. Extraocular movements intact. ENT: Oral mucosa moist, tongue midline. Oropharynx unremarkable. Airway patent. NECK: Full range of motion. Supple. Trachea midline. No lymphadenopathy. LUNGS: Clear to auscultation bilaterally, no wheezes, rales, or rhonchi. No respiratory distress. Non-tender chest wall. HEART: Regular rate and rhythm. No murmur ABDOMEN: Soft, non-tender. Non-distended. Bowel sounds present in all 4 quadrants. GENITOURINARY: Deferred EXTREMITIES: Moves all 4 extremities spontaneously. No edema, normal radial and dorsalis pedis pulses bilaterally. No cyanosis. BACK: no cervical, thoracic, lumbar midline tenderness. No saddle anesthesia, normal distal neurovascular exam. Moves all extremities in full range of motion. NEUROLOGICAL: Alert and oriented x3. Normal speech. Cranial nerves II through XII grossly intact. Strength 5/5 in all extremities. PSYCH: Normal affect, normal mood. SKIN: Warm, dry, normal turgor. No rashes or lesions noted. Course - Re-evaluation Re-evalutation: Patient presents with concerns about his elevated blood pressure. Blood pressure is 172 systolic in the emergency department. However patient is asymptomatic with this, he has no headache, chest pain, or any other complaints. His frequency of urination has resolved. Urine is clean, laboratory work-up reviewed and unremarkable, neurologic exam is unremarkable. I discussed with patient. Discussed keeping a blood pressure journal, patient states he does not think he will be able to do this but he does state that he will follow-up in approximately 3 days with his primary care provider to have this rechecked. He states he has multiple appointments already scheduled for this coming week. Patient is requesting discharge. I discussed work-up, provided with copy of his labs, discussed follow-up instructions and return precautions in detail. Patient states appreciation and agreement. Stable, asymptomatic, well-appearing at time of discharge. - Vital Signs Vital signs: Temp Pulse Resp BP Pulse Ox 98.1 F 67 20 172/68 H 97 11/23/20 18:12 11/23/20 18:12 11/23/20 18:12 11/23/20 18:12 11/23/20 18:12 - Laboratory Results Result Diagrams: 11/23/20 18:43 11/23/20 18:43 Laboratory Results Interpreted: 11/23/20 11/23/20 11/23/20 18:43 18:43 18:43 RBC 4.27 L Hgb 12.4 L Hct 37.3 L RDW 14.5 H Sodium 135.8 L Glucose 117 H Urine Ascorbic Acid 20 H Critical Laboratory Results Reviewed: No Critical Results - Radiology Results Critical Radiology Results Reviewed: No Critical Results Discharge - Discharge Clinical Impression: Elevated blood pressure reading Condition: Stable Disposition: HOME, SELF-CARE Additional Instructions: Your laboratory tests do not show any concerning findings. Your exam does not show any concerning findings. Your blood pressure was elevated tonight, this does need to be rechecked in a close follow-up with your primary care provider, call them Wednesday to follow-up with them closely. Come back for any concerning symptoms including developing headache, chest pain, vomiting, or any other concerning or worsening symptoms. Referrals: DALIA MOSELEY PA-C [Primary Care Provider] - 11/25/20
== END 2020-11-23 20:57 | disposition home or self-care (01) ==
LOC: ER 17:43
DX: I10 Essential (primary) hypertension (principal); R35.0 Frequency of micturition; E11.9 Type 2 diabetes mellitus without complications
CPT/HCPCS: 36415; 80053; 81001; 85025; 99283